=== PATIENT | female | born 1940 | race Caucasian/White ===

== ENCOUNTER 2019-11-26 11:38 | Outpatient (CLI) | payer MEDICARE, OTHER, SELFPAY ==
--- NOTE | ~2019-11-26 | MM_ITS ---
EXAMINATION: MM screening [facility] w [facility] HISTORY: Screening TECHNIQUE: Craniocaudal and mediolateral oblique 3-D tomosynthesis images were obtained and synthetic 2-D images were generated. CAD analysis was submitted and interpreted. COMPARISON: Comparison to multiple prior studies sequentially, with oldest reviewed study dated 04/2013. BREAST PARENCHYMAL COMPOSITION: There are scattered areas of fibroglandular density. FINDINGS: There is no evidence of suspicious mass, calcification, or architectural distortion to sugg est malignancy in either breast. There has been no suspicious interval change. IMPRESSION: 1. No mammographic evidence of malignancy. 2. Recommend routine screening mammography in one year. BI-RADS Category 1: Negative Reviewed, dictated and finalized at location A.
== END 2019-11-26 11:39 | disposition home or self-care (01) ==
LOC: ANHIMG 11:42
PROVIDERS: PCP Emergency Medicine; Visit Provider Emergency Medicine
DX: Z12.31 Encounter for screening mammogram for malignant neoplasm of breast (principal)
CPT/HCPCS: 77063; 77067

== ENCOUNTER 2020-06-20 10:10 | Emergency (ER) | payer MEDICARE, OTHER, SELFPAY ==
[2020-06-20 10:26] VITALS: BP 135/67; PULSE 58; RESP 16; TEMP 36.4; O2SAT 97
--- NOTE | 2020-06-20 10:44 | ED.EXTPRO ---
HPI - Extremity Problem General Chief complaint: Extremity Problem,Nontraumatic Stated complaint: L LEG PAIN Source: patient and RN notes reviewed Limitations: no limitations History of Present Illness HPI Narrative: The obese patient, on several meds inc ASA, presents with left distal calf pain. She complains now of shorter half week history of opposite, left lower extremity discomfort of the calf , well above the Achilles. No overuse, injury, visible swelling, shortness of breath, CP, rash; symptoms are mild and slightly worse with activity. 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 Discussed possible causes [vascular, orthopedic, etc.] patient declines same day referral to hospital for higher testing.. Related Data Home Medications Medication Instructions Recorded Confirmed alprazolam 0.5 mg tablet 0.5 mg PO .COMPLEX 04/25/19 06/20/20 aspirin 81 mg chewable tablet See Rx Instructions PO DAILY 05/20/19 06/20/20 Allergies Allergy/AdvReac Type Severity Reaction Status Date / Time No Known Allergies Allergy Verified 06/20/20 10:14 Review of Systems Review of Systems: Narrative: General/Constitutional: No weight loss,fever Eyes: N0: Redness,discharge Ears/Nose/Throat: No: Epistaxis,ear discharge Respiratory: Denies: Hemoptysis Gastrointestinal: No Vomiting, Bleeding-rectal Skin: No Lumps, eruption Neurologic: No Focal Weakness,Sz Hematologic: Denies: Petechiae/Purpura Psychiatric: No: Suicida ideationl All Other Systems: Reviewed and Negative PMFSH Past Medical History Medical History (Updated 06/20/20 @ 10:48 by Calvin Aceves MD) Diabetes Hypercholesterolemia Hypertension Family History Family History Father Cerebrovascular accident Family history of Alzheimer's disease Social History Social History Smoking status: Former smoker Alcohol intake: never Comments At time of signature, agree with nursing past medical, surgical, social and family history. There is no relevant family history pertinent to the presenting complaint Exam Narrative: Exam Narrative: General Appearance: Well appearing, Well nourished, No distress EYE: PERRLA, EOMI, Conjunctiva clear Mouth/Throat: Normal appearing, Normal lips: Supple Respiratory: Airway patent, No respiratory distress MS-calf: Normal strength (mostly intact, almost unlimited flexion/extension by pain), min distal tenderness ( , with mild decreased ROM), no swelling, Other (no anterior drawer, no collateral laxity, no Achilles tenderness, no Homans, no Cao). Skin: Warm, Dry, Normal color Neurological: A&O x3, Speech clear, CN II-XII intact Psychiatric: Normal mood, Normal affect Course Vital Signs Vital signs: Vital Signs Temperature 97.5 F L 06/20/20 10:26 Pulse Rate 58 L 06/20/20 10:26 Respiratory Rate 16 06/20/20 10:26 Blood Pressure 135/67 06/20/20 10:26 Pulse Oximetry 97 06/20/20 10:26 Temperature 97.5 F L 06/20/20 10:26 Pulse Rate 58 L 06/20/20 10:26 Respiratory Rate 16 06/20/20 10:26 Blood Pressure 135/67 06/20/20 10:26 Pulse Oximetry 97 06/20/20 10:26 Discharge Plan Discharge Clinical Impression: Pain of left calf Patient Disposition: Left Against Medical Advice Condition: Guarded Prognosis Additional Instructions: You have declined hospital referral today, but may going in anytime Ensure follow-up with your PMD Prescriptions: New prednisone 20 mg tablet 60 mg PO DAILY Qty: 9 RF: 0 acetaminophen-codeine 300-30 mg tablet 1 - 2 tablet PO HS PRN (Reason: pain) Qty: 10 RF: 0 No Action alprazolam [Xanax] 0.5 mg tablet 0.5 mg PO .COMPLEX RF: 0 aspirin 81 mg tablet,chewable See Rx Instructions PO DAILY RF: 0 losartan 100 mg tablet See Rx Inst
== END 2020-06-20 11:05 | disposition left against medical advice (07) ==
PROVIDERS: Emergency Provider Emergency Medicine; PCP Emergency Medicine
DX: M79.662 Pain in left lower leg (principal); E11.9 Type 2 diabetes mellitus without complications; E78.00 Pure hypercholesterolemia, unspecified; I10 Essential (primary) hypertension; Z87.891 Personal history of nicotine dependence; Z86.718 Personal history of other venous thrombosis and embolism; F41.9 Anxiety disorder, unspecified; Z98.42 Cataract extraction status, left eye; Z98.41 Cataract extraction status, right eye
CPT/HCPCS: 99213; G0463

== ENCOUNTER 2020-12-07 10:34 | Outpatient (CLI) | payer MEDICARE, OTHER, SELFPAY ==
--- NOTE | ~2020-12-07 | MM_ITS ---
EXAMINATION: MM screening [facility] w [place] HISTORY: Screening TECHNIQUE: Craniocaudal and mediolateral oblique 3-D tomosynthesis images were obtained and synthetic 2-D images were generated. CAD analysis was submitted and interpreted. COMPARISON: Comparison to multiple prior studies sequentially, with oldest reviewed study dated 09/11. BREAST PARENCHYMAL COMPOSITION: There are scattered areas of fibroglandular density. FINDINGS: There is no evidence of suspicious mass, calcification, or architectural distortion to sugg est malignancy in either breast. There has been no suspicious interval change. IMPRESSION: 1. No mammographic evidence of malignancy. 2. Recommend routine screening mammography in one year. BI-RADS Category 1: Negative Reviewed, dictated and finalized at location A.
== END 2020-12-07 10:35 | disposition home or self-care (01) ==
PROVIDERS: PCP Emergency Medicine; Visit Provider Emergency Medicine
DX: Z12.31 Encounter for screening mammogram for malignant neoplasm of breast (principal)
CPT/HCPCS: 77063; 77067

== ENCOUNTER 2021-04-04 13:45 | Outpatient (CLI) | payer MEDICARE, SELFPAY ==
--- NOTE | ~2021-04-04 | XR_ITS ---
EXAMINATION:XR_[id number]_CR DATE: 04/04/2021 14:08 INDICATION: Neck pain TECHNIQUE: AP, lateral, and odontoid views of the cervical spine are provided. COMPARISON: 09/25/2007 FINDINGS: There are 2 mm of unchanged anterolisthesis of C4 on C5. The odontoid is intact. No fractur e is identified. The vertebral body heights are maintained. There is severe loss of intervertebral di sc space height at C5-6 and C6-7 with interval worsening. Small degenerative osteophytes project from the anterior endplates of multiple vertebral bodies. There is severe multilevel facet and uncoverteb ral joint osteoarthritis. Prevertebral soft tissues are normal. IMPRESSION: 1. Severe cervical spondylosis with interval worsening but no acute findings. Reviewed, dictated and finalized at location F. 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
== END 2021-04-04 13:46 | disposition home or self-care (01) ==
LOC: ANHIMG 13:52
PROVIDERS: PCP Emergency Medicine; Visit Provider Emergency Medicine
DX: M47.892 Other spondylosis, cervical region (principal)
CPT/HCPCS: 72040

== ENCOUNTER 2022-01-19 10:34 | Outpatient (CLI) | payer MEDICARE, OTHER, SELFPAY ==
--- NOTE | ~2022-01-19 | MM_ITS ---
EXAMINATION: MM screening [facility] BI w [place] HISTORY: Screening mammogram TECHNIQUE: Craniocaudal and mediolateral oblique 3-D tomosynthesis images were obtained and synthetic 2-D images were generated. CAD analysis was submitted and interpreted. COMPARISON: 12/07/2020, 11/26/2019, 11/10/2018 BREAST PARENCHYMAL COMPOSITION: The breasts are almost entirely fatty. FINDINGS: An intramammary lymph node is noted in the upper outer quadrant of the right breast. No chely picious mass, calcification, or architectural distortion are identified in either breast to suggest m alignancy. There has been no suspicious interval change. IMPRESSION: 1. No mammographic evidence of malignancy. 2. Recommend routine screening mammography while the patient remains in good health. BI-RADS Category 2: Benign finding(s). Reviewed, dictated and finalized at location A. IMPRESSION: 1. No mammographic evidence of malignancy. 2. Recommend routine screening mammography while the patient remains in good he alth. BI-RADS Category 2: Benign finding(s).
== END 2022-01-19 10:35 | disposition home or self-care (01) ==
PROVIDERS: PCP Emergency Medicine; Referring Provider Obstetrics & Gynecology Gynecology; Visit Provider Emergency Medicine
DX: Z12.31 Encounter for screening mammogram for malignant neoplasm of breast (principal)
CPT/HCPCS: 77063; 77067

== ENCOUNTER 2022-04-30 12:05 | Outpatient (CLI) | payer MEDICARE, OTHER, SELFPAY ==
--- NOTE | ~2022-04-30 | MR_ITS ---
MRI of the left hand CLINICAL HISTORY: Pain, inflammatory arthropathy TECHNIQUE: Sagittal T1-weighted and STIR images, axial T1-weighted, T2 fat-sat, STIR, and T1 fat-sat images, and coronal T1-weighted and STIR images were performed. Following intravenous administration of 18 cc MultiHance gadolinium, T1-weighted fat-sat imaging was performed in the axial, coronal, and sagittal planes. FINDINGS: There is moderate degenerative change the first carpal metacarpal joint, with reactive subc hondral cystic change and marrow edema about the joint space. There is severe degenerative change at the third PIP joint, with joint space narrowing and reactive subchondral cystic change. Questionable central erosive arthropathy. There is moderate to advanced arthritic change at the fourth PIP joint, with joint space narrowing present. There are moderate degenerative changes of the third and fourth D IP joints. Flexor and extensor tendons are unremarkable. Visualized musculature of the hand is unremarkable. No soft tissue mass or fluid collection evident. No significant joint effusion identified. No abnormal/suspicious postcontrast enhancement identified. IMPRESSION: Advanced degenerative change at the third PIP joint, consistent with osteoarthritis versus possibly e rosive osteoarthritis. Additional osteoarthritic changes at the first CMC joint, fourth PIP joint, and third and fourth DIP joints. 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 Additional osteoarthritic changes at the first CMC joint, fourth PIP joint, and third and fourth DIP joints.
== END 2022-04-30 12:06 | disposition home or self-care (01) ==
PROVIDERS: PCP Emergency Medicine
DX: M19.042 Primary osteoarthritis, left hand (principal); M79.642 Pain in left hand
CPT/HCPCS: 73220; A9577

== ENCOUNTER → 2022-09-30 09:36 | Outpatient (CLI) | payer MEDICARE, OTHER, SELFPAY ==
--- NOTE | ~2022-09-30 | MR_ITS ---
EXAMINATION: MR wrist RT wo con DATE: 09/30/2022 10:48 INDICATION: Right wrist pain. Right finger numbness. TECHNIQUE: Magnetic resonance imaging (MRI) of the wrist was performed without intravenous contrast. Sequences performed include coronal T1-weighted FSE, coronal PD-weighted FS FSE, axial PD-weighted FS FSE, axial PD-weighted FSE, sagittal PD-weighted FSE, and sagittal PD-weighted FS FSE. COMPARISON: None FINDINGS: Intrinsic ligaments: Scapholunate ligament and lunotriquetral ligament are intact. Triangular fibrocartilage complex (TFCC): There is a full-thickness tear of triangular fibrocartilage. Extensor wrist: The extensor tendons are normal. Flexor wrist: The flexor tendons are normal. Median nerve is normal. Guyon's canal: Ulnar nerve is normal. Bones/other: Bone alignment is normal. There is severe osteoarthritis of triscaphe joint and moderate osteoarthrit is of first carpometacarpal joint. There is a skin marker superficial to radial styloid. IMPRESSION: 1. Severe osteoarthritis of triscaphe joint and moderate osteoarthritis of first carpometacarpal join t. Reviewed, dictated and finalized at location A. IMPRESSION: 1. Severe osteoarthritis of triscaphe joint and moderate osteoarthritis of firs t carpometacarpal joint.
--- NOTE | ~2022-09-30 | MR_ITS ---
EXAMINATION: MR cervical spine wo con DATE: 09/30/2022 10:54 INDICATION: Cervical radiculopathy. Chronic neck pain. TECHNIQUE: Magnetic resonance imaging (MRI) of the cervical spine was performed without intravenous c ontrast. Sequences included sagittal T2-weighted FSE, sagittal T2-weighted FS FSE, sagittal T1-weight ed FSE, axial MERGE, and axial T2-weighted FSE. COMPARISON: Cervical spine radiographs 04/04/21 FINDINGS: Bone alignment is normal. Vertebral body heights are normal. There is severely decreased di sc height at C5-C6 and C6-C7. The spinal cord signal intensity is normal. The following disc levels a re specifically discussed: C2-C3: The disc does not extend beyond the endplate margin. There is no uncovertebral joint osteoarth ritis. There is ankylosis of right facet joint with moderate hypertrophy. There is mild left facet chuck int osteoarthritis. There is no neural foraminal stenosis. There is no central canal stenosis. C3-C4: The disc does not extend beyond the endplate margin. There is mild bilateral uncovertebral mell nt osteoarthritis. There is severe bilateral facet joint osteoarthritis. There is mild bilateral neur al foraminal stenosis. There is no central canal stenosis. C4-C5: The disc does not extend beyond the endplate margin. There is mild bilateral uncovertebral mell nt osteoarthritis. There is severe right and moderate left facet joint osteoarthritis. There is mild right neural foraminal stenosis. There is no central canal stenosis. C5-C6: The disc is bulging. There is severe bilateral uncovertebral joint osteoarthritis. There is se katelin bilateral facet joint osteoarthritis. There is moderate bilateral neural foraminal stenosis. The re is mild central canal stenosis. C6-C7: The disc is bulging. There is severe bilateral uncovertebral joint osteoarthritis. There is se katelin bilateral facet joint osteoarthritis. There is mild right and moderate left neural foraminal kristin nosis. There is mild central canal stenosis. C7-T1: The disc does not extend beyond the endplate margin. There is no uncovertebral joint osteoarth ritis. There is severe bilateral facet joint osteoarthritis. There is mild bilateral neural foraminal stenosis. There is no central canal stenosis. IMPRESSION: 1. Severe cervical spondylosis. Reviewed, dictated and finalized at location A.
== END ==
PROVIDERS: PCP Emergency Medicine; Visit Provider Emergency Medicine
DX: M47.22 Other spondylosis with radiculopathy, cervical region (principal); M19.031 Primary osteoarthritis, right wrist
CPT/HCPCS: 72141; 73221

== ENCOUNTER 2022-10-08 04:32 | Emergency (ER) | payer MEDICARE, OTHER, SELFPAY ==
--- NOTE | ~2022-10-08 | XR_ITS ---
XR chest 2V DATE: 10/08/2022 05:04 INDICATION: Chest pain for one day TECHNIQUE: AP and lateral views COMPARISON: 03/27/2019 PA and lateral chest FINDINGS: Mild cardiomegaly. Aortic arch calcification, minimal aortic unfolding. No hilar or mediast inal enlargement. Minimal discoid atelectasis or scarring in the lung bases. The lungs otherwise appear clear. No pleur al effusion or pulmonary vascular congestion or pneumothorax is detected. Osteopenia. Degenerative spurring of the thoracic spine. IMPRESSION: Minimal discoid atelectasis or scarring at the lung bases Reviewed, dictated and finalized at location A.
--- NOTE | ~2022-10-08 | US_ITS ---
US abdomen limited DATE: 10/08/2022 08:54 INDICATION: Epigastric abdominal pain, elevated liver function tests. Chest pain. TECHNIQUE: Real-time imaging and Doppler analysis of the liver, pancreas, gallbladder COMPARISON: 11/26/2007 CT renal scan FINDINGS: No hepatic or pancreatic space-occupying mass lesion. Normal hepatopedal portal venous flow direction. No pancreatic duct dilatation. The common bile duct measures 7 mm, within upper normal ra nge for patient age. No gallstones or gallbladder wall thickening are detected. IMPRESSION: No significant abnormality is demonstrated Reviewed, dictated and finalized at Location A. Reviewed, dictated and finalized at location A.
[2022-10-08 04:33] VITALS: BP 152/90; PULSE 80; RESP 23; TEMP 36.9; O2SAT 98
--- NOTE | 2022-10-08 04:33 | ECG_ITS ---
Measurements Intervals Mack Rate: 56 P: 53 CT: 193 QRS: 11 QRSD: 94 T: 58 QT: 430 QTc: 419 Interpretive Statements SINUS BRADYCARDIA BORDERLINE ECG NO PREVIOUS ECG AVAILABLE FOR COMPARISON Electronically Signed On 10-08-2022 8:12:46 CDT by Zbigniew Dominguez D.O.
[2022-10-08 04:40] VITALS: PULSE 57
[2022-10-08 04:42] VITALS: O2SAT 100
--- NOTE | 2022-10-08 04:44 | PC.NURSE ---
Patient states once EMS arrived to ED her chest pain is 0/10
[2022-10-08 04:59] LABS: Basophils Percent Auto 0.4 % (0.2-1.2); Eosinophils Absolute Auto 0.3 K/mm3 (0-0.3); Eosinophils Percent Auto 3.3 % (0-4.4); Hematocrit 39.3 % (37.0-47.0); Hemoglobin 12.6 g/dL (12.0-15.0); Immature Granulocyte Absolute 0.03 K/mm3 (0.00-0.031); Immature Granulocyte Percent A 0.3 % (0-0.5); Lymphocytes Absolute Auto 2.15 K/mm3 (0.9-3.2); Lymphocytes Percent Auto 24.2 % (18.3-44.2); Mean Corpuscular HGB Conc 32.1 g/dl (32-36); Mean Corpuscular Hemoglobin 31.7 pg (26-34); Mean Platelet Volume 10.8 fl (7.4-10.4); Monocytes Absolute Auto 0.7 K/mm3 (0.1-0.6); Monocytes Percent Auto 7.5 % (2.6-8.5); Neutrophils Absolute Auto 5.7 K/mm3 (1.3-6.7); Neutrophils Percent Auto 64.3 % (45.5-73.1); Platelet Count Result 222 k/mm3 (150-375); Red Blood Count 3.97 M/mm3 (4.2-5.4); Red Cell Distribution Width 13.2 % (11.5-14.5); White Blood Count 8.9 K/mm3 (4.5-10.0)
[2022-10-08 05:08] LABS: Alanine Aminotransferase 40 U/L (6-35); Alkaline Phosphatase 93 U/L (38-126); Anion Gap 4 mmol/L (8-16); Aspartate Amino Transferase 77 U/L (14-36); Bilirubin,Total 0.5 mg/dL (0.2-1.3); Blood Urea Nitrogen 18 mg/dL (7-17); Calcium 8.7 mg/dL (8.4-10.2); Carbon Dioxide 27 mmol/L (22-30); Chloride 107 mmol/L (98-107); Estimated Glomerular Filt Rate > 60; Glucose 115 mg/dL (65-110); Lipase 108 U/L (23-300); Sodium 138 mmol/L (137-145)
[2022-10-08 05:10] LABS: Prothrombin Time 13.6 Seconds (11.1-14.7)
[2022-10-08 05:11] LABS: Partial Thromboplastin Time 31.7 SECONDS (22.3-36.8)
--- NOTE | 2022-10-08 05:12 | ED.GENADULT ---
HPI - General Adult General Chief complaint: Chest Pain <Kiet Cooper MD - Last Filed: 10/08/22 06:06> Stated complaint: chest pain <Kiet Cooper MD - Last Filed: 10/08/22 06:06> Time Seen by Provider: 10/08/22 04:36 <Kiet Cooper MD - Last Filed: 10/08/22 06:06> History of Present Illness HPI narrative: Patient 81-year-old female who presents emerged department with chief complaint of chest pain. Patient reports that she was having a difficult time sleeping this evening and then had an episode where she felt some uncomfortable feeling in her low chest and under the left breast area. Patient reports she took 4 baby aspirin and was given a single nitroglycerin by EMS prior to arrival patient states that her pain is resolved at this point patient reports no prior history of cardiac disease but does report that she has a history of hypertension and high cholesterol. Patient reports that she is currently a non-smoker the patient reports that she has very minimal other medical conditions and reports that she has never had any stents placed and reports no prior cardiac disease. <Kiet Cooper MD - Last Filed: 10/08/22 06:06> Related Data Home medications: Home Medications Medication Instructions Recorded Confirmed aspirin 81 mg chewable tablet See Rx Instructions PO DAILY 05/20/19 12/10/20 methotrexate sodium 2.5 mg tablet 2.5 mg PO WEEKLY 12/13/21 <Kiet Cooper MD - Last Filed: 10/08/22 06:06> Allergies/adverse reactions: Allergies Allergy/AdvReac Type Severity Reaction Status Date / Time No Known Allergies Allergy Verified 09/19/22 10:55 <Kiet Cooper MD - Last Filed: 10/08/22 06:06> Review of Systems Review of Systems: A 10 system review of systems was completed on the patient and is negative except for what is stated in the HPI. Nursing and ancillary documentation was reviewed. <Kiet Cooper MD - Last Filed: 10/08/22 06:06> [facility] Past Medical History Medical History: Medical History Acute anemia Acute non-recurrent frontal sinusitis Acute non-recurrent maxillary sinusitis Acute recurrent maxillary sinusitis Adverse effect of ptnwkbenpfs-krdzbqinrn-pasryv inhibitors, initial encounter Anxiety disorder, unspecified Bilateral carotid bruits Body mass index [BMI] 29.0-29.9, adult (12/18/16) Body mass index [BMI] 30.0-30.9, adult (08/22/16) Body mass index [BMI] 31.0-31.9, adult (04/25/16) Bronchitis Chronic sinusitis Cough due to angiotensin-converting enzyme inhibitor Diabetes Fatigue Hair loss Head congestion Heart palpitations Hypercholesterolemia Hypertension Influenza A Neck pain Post-menopausal URI with cough and congestion Vitamin D deficiency <Kiet Cooper MD - Last Filed: 10/08/22 06:06> Family History Family History: Family History Father Cerebrovascular accident Family history of Alzheimer's disease <Kiet Cooper MD - Last Filed: 10/08/22 06:06> Social History Social History: Social History Smoking status: Former smoker Alcohol intake: never Lack of Transportation: No Lack of Food: Never True Current Housing: I Have Housing Concerned About Future Housing: No Difficulty Paying Gas/Electric Bills: No Difficulty Paying for Meds: No Currently Unemployed: No Education: Associate Degree Difficulty w/ Childcare or Family Care: No <Kiet Cooper MD - Last Filed: 10/08/22 06:06> Exam Narrative: GENERAL: Well-appearing, well-nourished, and in no acute distress. HEAD: Normocephalic, atraumatic. EYES: PERRLA and EOMI. ENT: Nares clear, no rhinorrhea or epistaxis. Mucous membranes moist. NECK: Supple.
[2022-10-08 05:20] LABS: Troponin I < 0.012 ng/mL (0.000-0.034)
[2022-10-08 06:37] VITALS: BP 133/59; PULSE 60; RESP 14; O2SAT 100
[2022-10-08 07:41] VITALS: BP 131/65; PULSE 58; RESP 13; O2SAT 97
[2022-10-08 07:51] LABS: Troponin I < 0.012 ng/mL (0.000-0.034)
[2022-10-08 10:00] VITALS: BP 145/70; PULSE 68; RESP 16; O2SAT 98
== END 2022-10-08 10:00 | disposition home or self-care (01) ==
PROVIDERS: Emergency Medicine; Emergency Provider Emergency Medicine; PCP Emergency Medicine
DX: R07.9 Chest pain, unspecified (principal); I10 Essential (primary) hypertension; E78.00 Pure hypercholesterolemia, unspecified; E11.9 Type 2 diabetes mellitus without complications; E55.9 Vitamin D deficiency, unspecified; Z87.891 Personal history of nicotine dependence; Z79.82 Long term (current) use of aspirin; Z79.84 Long term (current) use of oral hypoglycemic drugs; R00.1 Bradycardia, unspecified
CPT/HCPCS: 36415; 71046; 76705; 80053; 83690; 84484; 85025; 85610; 85730; 93005; 99284

== ENCOUNTER 2022-11-21 06:41 | Day surgery (SDC) | payer MEDICARE, OTHER, SELFPAY ==
[2022-11-13 09:22] VITALS: BMI 30.6
--- NOTE | ~2022-11-21 | XR_ITS ---
EXAMINATION: XR fluoroscopy no charge DATE: 11/21/2022 8:19 CDT INDICATION: RIGHTWARD C6-7 INTERLAMINAR EPIDURAL STEROID INJECTION . TECHNIQUE: 2 fluoroscopic images of the lower C-spine were obtained during right C6-7 interlaminar ep idural steroid injection performed by the surgeon. I was not present in the operating room. Fluorosco py exposure time was 18.3 seconds. Air Kerma 8.75 mGy. COMPARISON: None FINDINGS: Needle access between C6 and C7. Contrast instillation into the epidural space. IMPRESSION: Fluoroscopic documentation of right C6-7 interlaminar epidural steroid injection. Please refer to the operative note for complete procedural details . Reviewed, dictated and finalized at location K. IMPRESSION: Fluoroscopic documentation of right C6-7 interlaminar epidural steroid injectio n. Please refer to the operative note for complete procedural details .
[2022-11-21 06:57] VITALS: BP 149/68; PULSE 63; RESP 20; TEMP 36.5; O2SAT 99
--- NOTE | 2022-11-21 07:31 | WPDHPUPDATE1 ---
History and Physical Update Update Date/Time: 11/21/22 07:31 History and Physical has been reviewed, including an updated exam of the patient. There are NO changes in the patient's condition. Risks, benefits, and alternatives have been discussed and questions answered. Patient agrees to proceed with procedure.
[2022-11-21 08:25] VITALS: BP 157/72; PULSE 57; O2SAT 97
[2022-11-21] MEDS: LIDOCAINE HCL 1% LOCAL INJ 20 ML VIAL 3 ML INFILTRATE (08:32)
[2022-11-21 08:35] VITALS: BP 152/75; PULSE 58; O2SAT 96
[2022-11-21 08:41] VITALS: BP 153/72; PULSE 64; RESP 14; O2SAT 99
--- NOTE | 2022-11-21 08:46 | W.PM.PROC2 ---
Procedure Note - Detailed Date of Procedure 11/21/22 Pre-op Diagnosis Cervical radiculopathy, Cervical Stenosis Post-op Diagnosis Same Procedure Performed Rightward C7-T1 Interlaminar Epidural Steroid Injection with Fluoroscopy and Contrast Control Surgeon Kamar Adams MD Anesthesia Local Indications Chronic Pain from cervical radiculopathy recalcitrant to conservative measures. Description of Procedure INFORMED CONSENT: Risks, benefits and alternatives to the procedure were discussed in detail with the patient who expressed explicit understanding and consent to proceed. Patient was informed verbally and in written form regarding the risks associated with the procedure including the low risk of serious infection, bleeding/bruising, allergic reaction, nerve or organ injury, paralysis, procedural site pain or discomfort, worsening pain and/or mobility, failure to treat and/or disfigurement. The patient expressed explicit understanding and consent to proceed. All materials required for the procedure were available prior to procedure start. Site and side was marked prior to procedure and confirmed in the presence of the patient. PROCEDURE IN DETAIL: The patient was brought to the procedural suite and placed in the prone position. Patient's head was positioned and stabilized with a ProneView pillow or equivalent. Patient was made comfortable with use of pillows under the chest, hips and ankles. Skin overlying the injection site was prepared broadly with ChloraPrep applicator and draped in a sterile manner. Aseptic technique was employed throughout. The endplates of the vertebral body at the site of interest were aligned in the AP view. Slight caudad tilt and ipsilateral oblique angulation was utilized to optimize visualization of the targeted posterior intervertebral foramen at C7-T1. Local anesthesia was established by infiltration with approximately 5 mL of 2% lidocaine via a 1-1/2 inch 27-gauge needle. A 20-gauge 4-inch Tuohy epidural needle was advanced intermittently until appropriate loss of resistance to air was identified via plastic loss of resistance syringe. Lateral view was used to confirm the appropriate positioning of the needle tip within the posterior epidural space. In the AP view, 2.0 mL of Omnipaque 300 contrast medium was injected after negative aspiration for CSF, blood or other bodily fluid, showing appropriate epidural spread of contrast without evidence of intravascular or intrathecal placement. After negative repeat aspiration for CSF, blood or other bodily fluid, A 4 mL solution containing 10 mg of dexamethasone in sterile PF Normal Saline was injected after negative repeat aspiration. Appropriate spread of the injectate was confirmed with washout of previously injected contrast. No parasthesias were elicited. Needle was removed completely intact without difficulty. Images were saved and documented in the patient chart. Patient's skin was cleansed and sterile bandage applied. The patient tolerated the procedure well. The patient was transported to the recovery area in stable condition where they were observed for an appropriate amount of time prior to discharge, without evidence of complication. The patient was instructed to avoid excessive activity for the next 48 hours, including overhead work, reaching or extended device/computer usage. Showers only for 48 hours. They were instructed not to drive or operate heavy machinery for 24 hours. They are to monitor for severe headaches, fevers, chills, night sweats, erythema/swelling at the site or any other signs of infection, bleeding/bruising, bowel or bladder changes as well as new pain, weakness or numbness in the upper or lower extremity. Should they notice these changes, they are instructed to call our office immediately or report directly to the nearest Emergency Department if no answer or if after posted office hours. EXPOSURE:Time: 18.3s Total Dose: 8.75 mGy CONTRAST WASTED: 28mL Omnipaqu
== END 2022-11-21 08:58 | disposition home or self-care (01) ==
PROVIDERS: PCP Emergency Medicine; Visit Provider Anesthesiology Pain Medicine
PROC: (CPT 62321; principal; 2022-11-21 08:00)
DX: M54.12 Radiculopathy, cervical region (principal); M48.02 Spinal stenosis, cervical region
CPT/HCPCS: 62321; 99199

== ENCOUNTER 2022-11-22 12:32 | Outpatient (CLI) | payer MEDICARE, OTHER, SELFPAY ==
--- NOTE | 2022-11-22 14:00 | NEURO_ITS ---
Impression: # Diabetic on Metformin complains of numbness of right hand. # Right sided sensory Carpal Tunnel Syndrome with more involvement of middle finger. # Needle/EMG exam mildly neurogenic in APB. # Clinical correlation recommended. Nerve Conduction Studies Anti Sensory Summary Table Stim Site NR Peak (ms) P-T Amp (?V) Site1 Site2 Delta-P (ms) Dist (cm) Pierce (m/s) Right Median Anti Sensory (2-3nd Digit) Wrist 3.2 39.1 Wrist 2-3nd Digit 3.2 14.0 44 Wrist 4.9 52.3 Wrist 2-3nd Digit 3.2 14.0 44 Right Radial Anti Sensory (Base 1st Digit) Wrist 2.4 24.0 Wrist Base 1st Digit 2.4 0.0 Right Ulnar Anti Sensory (5th Digit) Wrist 2.6 25.3 Wrist 5th Digit 2.6 14.0 54 Motor Summary Table Stim Site NR Onset (ms) O-P Amp (mV) Site1 Site2 Delta-0 (ms) Dist (cm) Pierce (m/s) Right Median Motor (Abd Poll Brev) Wrist 2.9 4.8 Elbow Wrist 4.8 29.0 60 Elbow 7.7 4.5 Right Ulnar Motor (Abd Dig Minimi) Wrist 2.7 8.3 A Elbow Wrist 5.2 31.0 60 A Elbow 7.9 7.1 F Wave Studies NR F-Lat (ms) L-R F-Lat (ms) Right Median (Mrkrs) (Abd Poll Brev) 29.26 Right Ulnar (Mrkrs) (Abd Dig Min) 28.75 EMG Side Muscle Nerve Root Ins Act Fibs Amp Dur Recrt Comment Right 1stDorInt Ulnar C8-T1 Nml Nml Nml Nml Nml Right Ext Indicis Radial (Post Int) C7-8 Nml Nml Nml Nml Nml Right Ext Digitorum Radial (Post Int) C7-8 Nml Nml Nml Nml Nml Right BrachioRad Radial C5-6 Nml Nml Nml Nml Nml Right PronatorTeres Median C6-7 Nml Nml Nml Nml Nml Right Abd Poll Brev Median C8-T1 Nml Nml Nml >l2ms Reduced Right ABD Dig Min Ulnar C8-T1 Nml Nml Nml Nml Nml MTDD
== END 2022-11-22 12:33 | disposition home or self-care (01) ==
LOC: ANHNEURO 12:33
PROVIDERS: PCP Emergency Medicine; Visit Provider Orthopaedic Surgery
DX: G56.01 Carpal tunnel syndrome, right upper limb (principal)
CPT/HCPCS: 95886; 95909

== ENCOUNTER 2023-01-25 12:46 | Outpatient (CLI) | payer MEDICARE, OTHER, SELFPAY ==
--- NOTE | 2023-01-25 13:10 | ECG_ITS ---
Measurements Intervals [place] Rate: 65 P: 52 ID: 170 QRS: 10 QRSD: 87 T: 63 QT: 387 QTc: 404 Interpretive Statements SINUS RHYTHM BORDERLINE ST-T WAVE ABNORMALITY- HIGH LATERAL LEADS BASELINE ARTIFACT- I, II BORDERLINE ECG COMPARED TO ECG 10/08/2022 04:40:43 [address]M NOW PRESENT ST-T WAVE ABNORMALITY NOW PRESENT Electronically Signed On 01-25-2023 14:24:19 CDT by Zbigniew Dominguez D.O.
== END 2023-01-25 12:47 | disposition home or self-care (01) ==
PROVIDERS: PCP Emergency Medicine
DX: Z20.822 Contact with and (suspected) exposure to COVID-19 (principal); R94.31 Abnormal electrocardiogram [ECG] [EKG]
CPT/HCPCS: 93005

== ENCOUNTER 2023-01-31 21:55 | Emergency (ER) | payer MEDICARE, OTHER, SELFPAY ==
--- NOTE | ~2023-01-31 | XR_ITS ---
EXAMINATION: XR chest 2V DATE: 01/31/2023 22:36 INDICATION: Chest pain. TECHNIQUE: Frontal and lateral views of the chest were obtained. COMPARISON: Chest 2 views 10/08/2022 FINDINGS: There is mild atelectasis in the lower lung zones. No pleural effusion or pneumothorax. The heart size is normal. IMPRESSION: 1. Mild atelectasis in the lower lung zones. Reviewed, dictated and finalized at location E. CILING MACHINE TENDER
--- NOTE | 2023-01-31 21:56 | ECG_ITS ---
Measurements Intervals [place] Rate: 59 P: 64 AK: 180 QRS: 22 QRSD: 89 T: 65 QT: 410 QTc: 408 Interpretive Statements SINUS BRADYCARDIA BASELINE ARTIFACT- V5 BORDERLINE ECG COMPARED TO ECG 01/25/2023 13:16:43 SINUS BRADYCARDIA NOW PRESENT Electronically Signed On 02-01-2023 7:09:59 MEDICAL FIELD REPRESENTATIVE by Zbigniew Dominguez D.O.
[2023-01-31 22:02] VITALS: BP 155/66; PULSE 63; RESP 20; TEMP 36.1; O2SAT 96
[2023-01-31 22:29] LABS: Basophils Percent Auto 0.5 % (0.2-1.2); Eosinophils Absolute Auto 0.2 K/mm3 (0-0.3); Eosinophils Percent Auto 2.8 % (0-4.4); Hemoglobin 13.7 g/dL (12.0-15.0); Immature Granulocyte Absolute 0.03 K/mm3 (0.00-0.031); Immature Granulocyte Percent A 0.4 % (0-0.5); Lymphocytes Absolute Auto 2.75 K/mm3 (0.9-3.2); Lymphocytes Percent Auto 36.1 % (18.3-44.2); Mean Corpuscular HGB Conc 31.9 g/dl (32-36); Mean Corpuscular Hemoglobin 31.6 pg (26-34); Mean Corpuscular Volume 99.3 fl (80-100); Mean Platelet Volume 10.6 fl (7.4-10.4); Monocytes Absolute Auto 0.6 K/mm3 (0.1-0.6); Monocytes Percent Auto 7.8 % (2.6-8.5); Neutrophils Percent Auto 52.4 % (45.5-73.1); Platelet Count Result 265 k/mm3 (150-375); Red Blood Count 4.33 M/mm3 (4.2-5.4); Red Cell Distribution Width 13.6 % (11.5-14.5); White Blood Count 7.6 K/mm3 (4.5-10.0)
[2023-01-31 22:51] LABS: INR 0.9; Partial Thromboplastin Time 29.9 SECONDS (22.3-36.8); Prothrombin Time 12.7 Seconds (11.1-14.7)
[2023-01-31 22:53] LABS: Alanine Aminotransferase 16 U/L (6-35); Albumin Level 4.4 g/dL (3.5-5.1); Alkaline Phosphatase 90 U/L (38-126); Anion Gap 4 mmol/L (8-16); Aspartate Amino Transferase 22 U/L (14-36); Bilirubin,Total 0.5 mg/dL (0.2-1.3); Blood Urea Nitrogen 14 mg/dL (7-17); Calcium 9.2 mg/dL (8.4-10.2); Carbon Dioxide 30 mmol/L (22-30); Chloride 104 mmol/L (98-107); Estimated CRCL calculation 67 ml/min; Estimated Glomerular Filt Rate > 60; Glucose 103 mg/dL (65-110); Lipase 107 U/L (23-300); Potassium 3.8 mmol/L (3.4-5.0); Sodium 138 mmol/L (137-145)
[2023-01-31 22:59] LABS: Troponin I < 0.012 ng/mL (0.000-0.034)
--- NOTE | 2023-01-31 23:38 | ED.GENADULT ---
HPI - General Adult General Chief complaint: Recheck/Abnormal Lab/Rx Stated complaint: chest pain/jaw pain Time Seen by Provider: 01/31/23 23:22 Source: patient Mode of arrival: ambulatory Limitations: no limitations History of Present Illness HPI narrative: This is a an 82-year-old female with PMH of HTN, HLD who presents to the ED with chief complaint of bilateral anterior neck pain and concern for elevated blood pressure. Reports that she started having some bilateral neck/jaw pain this afternoon. States that after dinner tonight she started feeling little/so she took her temperature which was normal. She also took her blood pressure and was concerned because it was elevated in the 150s. She had carpal tunnel surgery yesterday of her right hand and has been taking her pain medications with good relief. Denies fevers, chills, cough, chest pain, shortness of breath, LOC, vomiting, exertional component of pain. She does note that the neck has some tenderness bilaterally under the jaw areas. Related Data Home Medications Medication Instructions Recorded Confirmed aspirin 81 mg chewable tablet See Rx Instructions PO DAILY 05/20/19 01/24/23 Allergies Allergy/AdvReac Type Severity Reaction Status Date / Time No Known Allergies Allergy Verified 01/31/23 23:56 Review of Systems Review of Systems: All systems as dictated in [facility] Past Medical History Medical History Acute anemia Acute non-recurrent frontal sinusitis Acute non-recurrent maxillary sinusitis Acute recurrent maxillary sinusitis Adverse effect of iebafpoqxqx-acrvpukozd-ecfjrp inhibitors, initial encounter Anxiety disorder, unspecified Bilateral carotid bruits Body mass index [BMI] 29.0-29.9, adult (12/18/16) Body mass index [BMI] 30.0-30.9, adult (08/22/16) Body mass index [BMI] 31.0-31.9, adult (04/25/16) Bronchitis Chronic sinusitis Cough due to angiotensin-converting enzyme inhibitor Diabetes Fatigue Hair loss Head congestion Heart palpitations Hypercholesterolemia Hypertension Influenza A Neck pain Post-menopausal URI with cough and congestion Vitamin D deficiency Family History Family History Father Cerebrovascular accident Family history of Alzheimer's disease Social History Social History Smoking status: Never smoker Second hand tobacco smoke exposure: No Alcohol intake: never Substance use: never Substance use type: does not use Current Housing: Decline to Answer Concerned About Future Housing: Decline to Answer Difficulty Paying Gas/Electric Bills: Decline to Answer Difficulty Paying for Meds: Decline to Answer Currently Unemployed: Decline to Answer Education: Decline to Answer Difficulty w/ Childcare or Family Care: Decline to Answer Living arrangements: alone Spiritual care concerns: No Exam Narrative: GENERAL: Well-appearing, well-nourished, and in no acute distress. HEAD: Normocephalic, atraumatic. EYES: PERRLA and EOMI. ENT: Nares clear, no rhinorrhea or epistaxis. Mucous membranes moist. Oropharynx without tonsillar hypertrophy exudate or other lesions. NECK: Supple. Mild submandibular tenderness bilaterally. Tenderness near the parotid glands bilaterally as well. CHEST: No respiratory distress. Clear to auscultation. No wheezes rales or rhonchi HEART: Regular rate and rhythm. No murmur heard. Normal peripheral pulses. ABDOMEN: Soft, nontender, nondistended, normal active bowel sounds. MSK: Normal range of motion. No edema. SKIN: Warm, dry, no rash. NEURO: Alert and oriented x3. No focal deficits. PSYCH: Normal mood and affect. Course Course Emergency Course: Reevaluation 0010: Patient is still chest pain-free. She would like to go home and follow-up with her primary care doctor. Vital Signs V
[2023-01-31 23:48] VITALS: BP 150/70; PULSE 61; RESP 12; O2SAT 95
[2023-01-31] MEDS: ASPIRIN 81 MG CHEWABLE TABLET 324 MG PO (23:57)
== END 2023-02-01 00:14 | disposition home or self-care (01) ==
PROVIDERS: Emergency Medicine; Emergency Provider Physician Assistant; PCP Emergency Medicine
DX: R59.1 Generalized enlarged lymph nodes (principal); I10 Essential (primary) hypertension; J32.9 Chronic sinusitis, unspecified; E11.9 Type 2 diabetes mellitus without complications; E78.00 Pure hypercholesterolemia, unspecified; E55.9 Vitamin D deficiency, unspecified; Z86.2 Personal history of diseases of the blood and blood-forming organs and certain disorders involving the immune mechanism; R00.1 Bradycardia, unspecified; Z79.82 Long term (current) use of aspirin; Z79.84 Long term (current) use of oral hypoglycemic drugs
CPT/HCPCS: 36415; 71046; 80053; 83690; 84484; 85025; 85610; 85730; 93005; 99284; A9270

== ENCOUNTER → 2023-04-04 13:54 | Outpatient (CLI) | payer MEDICARE, OTHER, SELFPAY ==
--- NOTE | ~2023-04-04 | XR_ITS ---
EXAM: XR hip BI 2V w AP pelvis DATE: 04/04/2023 14:31 HISTORY: chronic Lt hip pain . COMPARISON: None available. FINDINGS: Decreased mineralization. No fracture or dislocation. No lytic or blastic lesion. Lumbar d egenerative disc disease. Moderate bilateral hip and pubic symphysis degenerative change. No erosion or periosteal change. Soft tissues within normal limits. IMPRESSION: Moderate bilateral hip osteoarthritic arthritis. Reviewed, dictated and finalized at location K. SCHOOL CUSTODIAN
--- NOTE | ~2023-04-04 | XR_ITS ---
XR shoulder LT min 2V DATE: 04/04/2023 14:32 INDICATION: Chronic left shoulder pain TECHNIQUE: 4 views COMPARISON: None FINDINGS: There is diffuse osteopenia. There is diminished joint space and mild spurring of the acromioclavicular joint. No fracture or dislocation, periosteal reaction or bone destruction or abnormal soft tissue calcifica tion. IMPRESSION: Osteopenia Mild degenerative change at acromioclavicular joint Diffuse idiopathic skeletal hyperostosis of the thoracic spine Cervical spondylosis Reviewed, dictated and finalized at location B. MASTER
== END ==
PROVIDERS: PCP Anesthesiology Pain Medicine; Visit Provider Anesthesiology Pain Medicine
DX: M46.1 Sacroiliitis, not elsewhere classified (principal); M54.9 Dorsalgia, unspecified; M19.011 Primary osteoarthritis, right shoulder; M19.012 Primary osteoarthritis, left shoulder; M25.512 Pain in left shoulder; M25.552 Pain in left hip; M16.0 Bilateral primary osteoarthritis of hip; M47.892 Other spondylosis, cervical region; M48.02 Spinal stenosis, cervical region; M48.12 Ankylosing hyperostosis [Forestier], cervical region
CPT/HCPCS: 73030; 73521

== ENCOUNTER 2023-04-24 09:39 | Day surgery (SDC) | payer MEDICARE, OTHER, SELFPAY ==
--- NOTE | ~2023-04-24 | XR_ITS ---
EXAMINATION: XR fluoroscopy no charge DATE: 04/24/2023 11:20 REDUCING SALON ATTENDANT INDICATION: LEFT SI JT INJ . TECHNIQUE: 5 fluoroscopic images and 2 cine clips of the left SI joint were obtained during left SI j oint injection performed by the surgeon. I was not present during the procedure. Fluoroscopy exposure time was 11.6 seconds. Air Kerma 7.83 mGy. COMPARISON: None FINDINGS: Injection needle approaching the left SI joint, followed by contrast injection. IMPRESSION: Fluoroscopic documentation of left SI joint injection. Please refer to the operative note for complet e procedural details . Reviewed, dictated and finalized at location K. CING SALON ATTENDANT IMPRESSION: Fluoroscopic documentation of left SI joint injection. Please refer to the oper ative note for complete procedural details .
--- NOTE | 2023-04-24 10:58 | WPDHPUPDATE1 ---
History and Physical Update Update Date/Time: 04/24/23 10:58 History and Physical has been reviewed, including an updated exam of the patient. There are NO changes in the patient's condition. Risks, benefits, and alternatives have been discussed and questions answered. Patient agrees to proceed with procedure.
--- NOTE | 2023-04-24 10:59 | W.PM.PROC2 ---
Procedure Note - Detailed Date of Procedure 04/24/23 Pre-op Diagnosis Sacroiliitis, chronic low back pain Post-op Diagnosis Same Procedure Performed Left intra-articular sacroiliac joint steroid injection under fluoroscopic guidance with contrast control. Surgeon Kamar Adams MD Anesthesia Local Description of Procedure INFORMED CONSENT: Risks, benefits and alternatives to the procedure were discussed in detail with the patient who expressed explicit understanding and consent to proceed. Patient was informed verbally and in written form regarding the risks associated with the procedure including the low risk of serious infection, bleeding/bruising, allergic reaction, nerve or organ injury, paralysis, procedural site pain or discomfort, worsening pain and/or mobility, failure to treat and/or disfigurement. The patient expressed explicit understanding and consent to proceed. All materials required for the procedure were available prior to procedure start. Site and side were marked prior to procedure and confirmed in the presence of the patient. PROCEDURE IN DETAIL: The patient was brought to the procedural suite and placed in the prone position. Patient was made comfortable with use of pillows under the head/chest, hips and ankles. Skin overlying the injection site on the affected side(s) was prepared broadly with ChloraPrep applicator and draped in a sterile manner. Aseptic technique was used throughout. The left SI joint was identified in the AP view and contralateral oblique angulation with caudal tilt was utilized to optimize visualization of the inferior and medial joint line representing the posterior portion of the joint. Local anesthesia was established by infiltration with approximately 5 mL of 2% lidocaine via a 1-1/2 inch 27-gauge needle. A 22-gauge 3.5 inch Quincke spinal needle was advanced until the needle entered the inferior third of the joint space approximately 1cm cephalad from its most inferior point. In the AP view, 0.5 mL of Omnipaque 300 contrast medium was injected after negative aspiration for CSF, blood or other bodily fluid, showing appropriate intra-articular spread of contrast without evidence of intravascular, perineural or intrathecal placement. A 2.0 mL solution containing 6.0 mg of betamethasone in 0.5% PF bupivacaine was injected after repeat negative aspiration. Appropriate spread of the injectate was confirmed with washout of previous injected contrast. No parasthesias were elicited. Needle was removed completely intact without difficulty. Images were saved and documented in the patient chart. Patient's skin was cleansed and sterile bandage applied. The patient tolerated the procedure well. The patient was transported to the recovery area in stable condition where they were observed for an appropriate amount of time prior to discharge, without evidence of complication. The patient was instructed to avoid excessive activity for the next 48 hours, including climbing and frequent use of stairs. Showers only for 48 hours. They were instructed not to drive or operate heavy machinery for 24 hours. They are to monitor for severe headaches, fevers, chills, night sweats, erythema/swelling at the site or any other signs of infection, bleeding/bruising, bowel or bladder changes as well as new pain, weakness or numbness in the upper or lower extremity. Should they notice these changes, they are instructed to call our office immediately or report directly to the nearest Emergency Department if no answer or if after posted office hours. COMPLICATIONS: None COMMENTS: None CONTRAST WASTED: 29.5 mL Omnipaque 300. Complications None Condition Stable Disposition Same day [facility] Billing Surgery - Charge Forward: Surgery Billing
[2023-04-24 11:24] VITALS: BP 142/77; PULSE 65; RESP 20; TEMP 36.9; O2SAT 100
[2023-04-24 11:27] VITALS: BP 164/73; PULSE 63; RESP 13; O2SAT 95
[2023-04-24] MEDS: BETAMETHASONE SODIUM PHOSPHATE PF INJ 6 MG/ML VIAL INFILTRATE (11:30)
[2023-04-24 11:31] VITALS: BP 165/73; PULSE 61; RESP 15; O2SAT 94
[2023-04-24] MEDS: LIDOCAINE HCL 1% PF INJ 5 ML VIAL XX (11:36)
[2023-04-24] MEDS: BUPivacaine HCL 0.5% 10 ML AMP INFILTRATE (11:36)
[2023-04-24 11:37] VITALS: BP 130/64; PULSE 64; RESP 18; O2SAT 97
== END 2023-04-24 11:50 | disposition home or self-care (01) ==
PROVIDERS: PCP Emergency Medicine; Visit Provider Anesthesiology Pain Medicine
PROC: (CPT G0260; principal; 2023-04-24 12:30)
DX: M46.1 Sacroiliitis, not elsewhere classified (principal); M54.59 Other low back pain
CPT/HCPCS: G0260; 27096; 99199

== ENCOUNTER 2023-05-04 09:25 | Outpatient (CLI) | payer MEDICARE, OTHER, SELFPAY ==
--- NOTE | ~2023-05-04 | MM_ITS ---
EXAMINATION: MM screening vivian BI w rolando HISTORY: Screening mammogram TECHNIQUE: Craniocaudal and mediolateral oblique 3-D tomosynthesis images were obtained and synthetic 2-D images were generated. CAD analysis was submitted and interpreted. COMPARISON: 01/19/2022, 12/07/2020, 11/26/2019 bilateral screening mammogram examinations BREAST PARENCHYMAL COMPOSITION: There are scattered areas of fibroglandular density. FINDINGS: There is no evidence of suspicious mass, calcification, or architectural distortion to sugg est malignancy in either breast. There has been no suspicious interval change. IMPRESSION: 1. No mammographic evidence of malignancy. 2. Recommend routine screening mammography in one year. BI-RADS Category 1: Negative Reviewed, dictated and finalized at location A. ING SUPERVISOR
== END 2023-05-04 09:26 | disposition home or self-care (01) ==
LOC: ANHIMG 09:28
PROVIDERS: PCP Emergency Medicine; Visit Provider Emergency Medicine
DX: Z12.31 Encounter for screening mammogram for malignant neoplasm of breast (principal)
CPT/HCPCS: 77063; 77067

== ENCOUNTER 2023-05-18 14:16 | Emergency (ER) | payer MEDICARE, OTHER, SELFPAY ==
[2023-05-18 14:16] VITALS: BP 144/77; PULSE 86; RESP 14; TEMP 36.3; O2SAT 96
--- NOTE | 2023-05-18 21:37 | PC.NURSE ---
No answer when called for repeat VS.
--- NOTE | 2023-05-18 22:16 | PC.NURSE ---
No answer when called for room. Assume pt left.
== END 2023-05-18 22:26 | disposition left against medical advice (07) ==
PROVIDERS: PCP Emergency Medicine
DX: K59.00 Constipation, unspecified (principal)
CPT/HCPCS: 99199

== ENCOUNTER 2023-06-07 09:01 | Outpatient (CLI) | payer MEDICARE, OTHER, SELFPAY ==
--- NOTE | ~2023-06-07 | DEXA_ITS ---
Bone Density Report Name: CHARLES TRINH Age: 82 Sex: Female Ethnicity: White Date of : 1940 Indication: osteopenia; height loss; history of glucocorticoids; cancer; hysterectomy; Referring Provider: ITZEL RAPP Study: Bone densitometry was performed. Exam Date: June 07, 2023 Accession number: [id number] Bone Density: Region BMD T-score Z-score Classification AP Spine(L1-L4) 0.900 -1.3 1.5 Osteopenia Femoral Neck (Left) 0.610 -2.2 0.3 Osteopenia Total Hip (Left) 0.847 -0.8 1.5 Normal Femoral Neck (Right) 0.571 -2.5 0.0 Osteoporosis Total Hip (Right) 0.752 -1.6 0.7 Osteopenia Total Hip Mean 0.799 -1.2 1.1 Osteopenia World Health Organization criteria for BMD impression classify patients as: Normal (T-score at or above -1.0), Osteopenia (T-score between -1.0 and -2.5), or Osteoporosis (T-score at or below -2.5). 10-year Fracture Risk: FRAX not reported because: Some T-score for Spine Total or Hip Total or Femoral Neck at or below -2.5 Previous Exams: Region Exam Age BMD T-score BMD Change BMD Change Date g/cm2 vs Baseline vs Previous AP Spine (L1-L4) 06/07/2023 82 0.900 -1.3 0.038 (4.4%)# 0.033 (3.9%)* 10/04/2017 76 0.866 -1.6 0.004 (0.5%)# 0.004 (0.5%)# 04/19/2015 74 0.862 -1.7 Total Hip(Left) 06/07/2023 82 0.847 -0.8 0.005 (0.6%)# -0.016 (-1.9%) 10/04/2017 76 0.863 -0.6 0.021 (2.5%)# 0.021 (2.5%)# 04/19/2015 74 0.842 -0.8 Total Hip(Right) 06/07/2023 82 0.752 -1.6 0.012 (1.6%)# 0.093 (14.2%)* 10/04/2017 76 0.659 -2.3 -0.081 (-11.0% -0.081 (-11.0% 04/19/2015 74 0.740 -1.7 *Denotes significance at 95% confidence level, LSC for AP Spine = 0.022 g/cm2, LSC for Total Hip = 0.027 g/cm2 # Denotes dissimilar scan types or analysis methods Clinical Information Provided by Patient: Has taken Glucocorticoids Has used the following medications: Miacalcin (i.e. calcitonin), Vitamin D Has the following medical conditions: Cancer, Hysterectomy Patient maximum height was 66 Menopause Age: 44 Drinks caffeinated beverages Onset of menses at age 12 Number of children 2 Impression: The patient has osteoporosis, based on the Right Femoral Neck T-score. The patient has risk factors, including: history of glucocorticoid therapy. No significant bone loss was observed. Discussion: INCREASED RISK OF FRACTURE. BONE DENSITY IS UNDESIRABLY LOW AT ONE OR MORE SKELETAL SITES, CONSISTE
== END 2023-06-07 09:02 | disposition home or self-care (01) ==
PROVIDERS: PCP Emergency Medicine; Visit Provider Emergency Medicine
DX: Z78.0 Asymptomatic menopausal state (principal); M85.88 Other specified disorders of bone density and structure, other site; M85.852 Other specified disorders of bone density and structure, left thigh; M85.851 Other specified disorders of bone density and structure, right thigh; M81.0 Age-related osteoporosis without current pathological fracture
CPT/HCPCS: 77080

== ENCOUNTER 2024-06-09 14:04 | Outpatient (CLI) | payer MEDICARE, OTHER, SELFPAY ==
--- NOTE | ~2024-06-09 | MM_ITS ---
EXAMINATION: MM screening vivian BI w rolando HISTORY: Screening TECHNIQUE: Craniocaudal and mediolateral oblique 3-D tomosynthesis images were obtained and synthetic 2-D images were generated. CAD analysis was submitted and interpreted. COMPARISON: Comparison to multiple prior studies sequentially, with oldest reviewed study dated 03/2017. BREAST PARENCHYMAL COMPOSITION: Not Dense: The breasts are almost entirely fatty. FINDINGS: There is no evidence of suspicious mass, calcification, or architectural distortion to sugg est malignancy in either breast. There has been no suspicious interval change. IMPRESSION: 1. No mammographic evidence of malignancy. 2. Recommend routine screening mammography in one year. BI-RADS Category 1: Negative Reviewed, dictated and finalized at location B.
--- OUTSIDE RECORDS SUMMARY | 2024-06-09 16:40 | XMS_ITS | Patient Health Summary ---
Author Organization [facility] [employer] Address [address] [place] [address] Care Team Providers Care [place] Manager Name Role Phone Jad Elizabeth MD Primary Care Provider + [phone] Note from [facility],non-owned Affiliates and Associated Physician Practices is amultiple site organization consisting of ambulatory clinics and hospital sitesin [place], [place], [place] and [place]. This disclosure is being madepursuant to the Care Everywhere program and may not contain all information available regarding this patient. Last updated 17.[facility] Allergies No known active allergies Medications * Be aware that medications may not be up to date on this document. Alwaysverify current medications with the patient. * metFORMIN (GLUCOPHAGE) 500 MG tablet(Started 08/05/2018) Take 1 (one) tablet by mouth 2 times daily * losartan (COZAAR) 100 MG tablet(Started 08/29/2018) Take 1 (one) tablet by mouth once daily * ASPIRIN 81 PO Take 1 tablet by mouth once daily * Cholecalciferol (VITAMIN D PO) Take 1 tablet by mouth once daily * ALPRAZolam (XANAX) 0.5 MG tablet(Started 07/24/2019) Take 1 (one) tablet by mouth nightly as needed * cetirizine (ZyrTEC) 10 MG tablet Take 1 (one) tablet by mouth once daily * meloxicam (Mobic) 15 MG tablet(Started 01/15/2023) TAKE 1 TABLET BY MOUTH EVERY DAY 1 refill by 01/15/2024 * alendronate (Fosamax) 70 MG tablet(Started 06/08/2023) Take 1 (one) tablet by mouth every 7 days before meal * amoxicillin (Amoxil) 500 MG tablet(Started 03/30/2023) Take 4 (four) tablets by mouth 1 HOUR BEFORE DENTAL PROCEDURE * celecoxib (CeleBREX) 200 MG capsule(Started 06/13/2023) Take 1 (one) capsule by mouth once daily * cephalexin (Keflex) 500 MG capsule(Started 10/04/2022) TAKE 4 TABLETS BY ORAL ROUTE DIRECTED 1 HOUR PRIOR TO DENTAL PROCEDURE * estradiol (Estrace) 0.1 MG/GM vaginal cream(Started 06/13/2023) Apply 1 g to affected area at bedtime * ezetimibe (Zetia) 10 MG tablet(Started 06/06/2023) Take 1 (one) tablet by mouth once daily * furosemide (Lasix) 20 MG tablet(Started 06/20/2023) Take 1 (one) tablet by mouth 2 times daily * amLODIPine (Norvasc) 10 MG tablet(Started 08/01/2023) Take 1 (one) tablet by mouth once daily Active Problems Problem Noted Date Diagnosed Date History of basal cell carcinoma 09/25/2018 Rash and other nonspecific skin eruption 019 Seborrheic keratoses, inflamed 09/25/2018 Xerosis of skin 09/25/2018 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 (FLUAD TRIVALENT; 65Y+) (AIIV3)(Given 01/02/2019) * Pneumococcal Pcv13 Conj(Given 01/02/2019) Social History Tobacco Use Types Packs/Day Years Used Date Smoking Tobacco: Former Smokeless Tobacco: Former Tobacco Cessation:Counseling Given: Not Answered Alcohol Use Standard Drinks/Week Comments No 0 (1 standard drink = 0.6 oz pur e alcohol) PHQ-2 Answer Date Recorded Patient Health Questionnaire-2 Score 0 06/05/2024 Sex and Gender Information Value Date Recorded Sex Assigned at Not on file Gender Identity Not on file Sexual Orientation Not on file Last Filed Vital Signs Vital Sign Reading Time Taken Comments Blood Pressure 124/74 08/09/2023 11:11 AM CDT Pulse 65 08/09/2023 11:11 AM CDT Temperature 36.8 C (98.3 F) 08/09/2023 11:11 AM CDT Respiratory Rate - - Oxygen Saturation 96% 08/09/2023 11:11 AM CDT Inhaled Oxygen Concentration - - Weight 92.5 kg (204 lb) 08/09/2023 11:11 AM CDT Height 165.1 cm (5' 5 ) 08/09/2023 11:11 AM CDT Body Mass Index 33.95 08/09/2023 11:11 AM CDT Procedures * XR HAND RIGHT 3VW OR MORE(Performed 06/06/2024) Performed for Bilateral hand pain * HEPATIC FUNCTION PANEL(Performed 08/21/2023) Performed for Therapeutic drug monitoring * CREATININE BLOOD(Performed 08/21/2023) Performed for Therapeutic drug monitoring * CBC W AUTO DIFFERENTIAL(Performed 08/21/2023) Performed for Therapeutic drug monitoring * HEPATIC FUNCTION PANEL(Performed 04/17/2022) Performed for Therapeutic drug monitoring * CREATININE BLOOD(Performed 04/17/2022) Performed for Therapeutic drug monitoring * CBC W AUTO DIFFERENTIAL(Performed 04/17/2022) Performed for Therapeutic drug monitoring * C-REACTIVE PROTEIN(Performed 11/16/2021) * ERYTHROCYTE SEDIMENTATION RATE(Performed 11/16/2021) * COMPREHENSIVE METABOLIC PANEL(Performed 11/16/2021) * HEPATIC FUNCTION PANEL(Performed 11/16/2021) Performed for Long-term use of immunosuppressant medication * CBC W AUTO DIFFERENTIAL(Performed 11/16/2021) Performed for Long-term use of immunosuppressant medication * ERYTHROCYTE SEDIMENTATION RATE(Performed 09/27/2021) Performed for Psoriatic arthritis (HCC), Arthralgia, unspecified joint, High risk medications (not anticoagulants) long-term use, Long-term use of immunosuppressant medication * CBC W AUTO DIFFERENTIAL(Performed 09/27/2021) Performed for Psoriatic arthritis (HCC), Arthralgia, unspecified joint, High risk medications (not anticoagulants) long-term use, Long-term use of immunosuppressant medication * COMPREHENSIVE METABOLIC PANEL(Performed 09/27/2021) Performed for Psoriatic arthritis (HCC), Arthralgia, unspecified joint, High risk medications (not anticoagulants) long-term use, Long-term use of immunosuppressant medication * C-REACTIVE PROTEIN(Performed 09/27/2021) Performed for Psoriatic arthritis (HCC), Arthralgia, unspecified joint, High risk medications (not anticoagulants) long-term use, Long-term use of immunosuppressant medication * HLA TYPING B27(Performed 09/27/2021) Performed for Psoriatic arthritis (HCC), Arthralgia, unspecified joint, High risk medications (not anticoagulants) long-term use, Long-term use of immunosuppressant medication * ERYTHROCYTE SEDIMENTATION RATE(Performed 08/10/2021) Performed for Arthralgia, unspecified joint, Osteoarthritis, unspecified osteoarthritis type, unspecified site * C-REACTIVE PROTEIN(Performed 08/10/2021) Performed for Arthralgia, unspecified joint, Osteoarthritis, unspecified osteoarthritis type, unspecified site * COMPREHENSIVE METABOLIC PANEL(Performed 08/10/2021) Performed for Arthralgia, unspecified joint, Osteoarthritis, unspecified osteoarthritis type, unspecified site * CBC W AUTO DIFFERENTIAL(Performed 08/10/2021) Performed for Arthralgia, unspecified joint, Osteoarthritis, unspecified osteoarthritis type, unspecified site * CYCLIC CITRULLINATED PEPTIDE(CCP) AB IGG(Performed 08/10/2021) Performed for Arthralgia, unspecified joint, Osteoarthritis, unspecified osteoarthritis type, unspecified site * RHEUMATOID FACTOR BLOOD QUANTITATIVE(Performed 08/10/2021) Performed for Arthralgia, unspecified joint, Osteoarthritis, unspecified osteoarthritis type, unspecified site * SS-B (SJOGREN'S) ANTIBODY(Performed 08/10/2021) Performed for Arthralgia, unspecified joint, Osteoarthritis, unspecified osteoarthritis type, unspecified site * SS-A (SJOGREN'S) ANTIBODY(Performed 08/10/2021) Performed for Arthralgia, unspecified joint, Osteoarthritis, unspecified osteoarthritis type, unspecified site * XR ANKLE RIGHT 2VW(Performed 08/08/2021) Performed for Arthralgia, unspecified joint, Osteoarthritis, unspecified osteoarthritis type, unspecified site * XR ANKLE LEFT 2VW(Performed 08/08/2021) Performed for Arthralgia, unspecified joint, Osteoarthritis, unspecified osteoarthritis type, unspecified site * XR FOOT RIGHT 3VW OR MORE(Performed 08/08/2021) Performed for Arthralgia, unspecified joint, Osteoarthritis, unspecified osteoarthritis type, unspecified site * XR FOOT LEFT 3VW OR MORE(Performed 08/08/2021) Performed for Arthralgia, unspecified joint, Osteoarthritis, unspecified osteoarthritis type, unspecified site * XR HAND RIGHT 3VW OR MORE(Performed 08/08/2021) Performed for Arthralgia, unspecified joint, Osteoarthritis, unspecified osteoarthritis type, unspecified site * XR HAND LEFT 3VW OR MORE(Performed 08/08/2021) Performed for Arthralgia, unspecified joint, Osteoarthritis, unspecified osteoarthritis type, unspecified site * IA DESTRUCT BENIGN LESION, 1-14(Performed 08/20/2019) Performed for Seborrheic keratoses, inflamed * CULTURE FUNGUS OTHER+FUNGUS SMEAR(Performed 02/01/2015) * CULTURE AEROBIC(Performed 02/01/2015) * DERMATOPATHOLOGY(Performed 04/24/2014) * DERMATOPATHOLOGY(Performed 12/27/2010) * DERMATOPATHOLOGY(Performed 11/10/2010) Results * XR Hand Right 3Vw or More (06/06/2024 1:10 PM CDT) Only the most recent of2 resultswithin the time period is included. 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 > Interpreting Provider: Layton Wooten MD on 06/06/2024 1:38 PM Narrative 06/06/2024 1:38 PM CDT PROCEDURE: XR HAND RIGHT 3VW OR MORE DATE/TIME OF EXAM: 06/06/2024 1:10 PM CLINICAL INFORMATION: None relevant/not provided if blank. Indication: M79.641: Bilateral hand pain M79.642: Bilateral hand pain Additional History: COMPARISON: 08/08/2021. FINDINGS: No fracture or dislocation is present. There is arthritis at several proximal interphalangeal joints, generally moderate, greatest at the second, fourth, and fifth digit proximal interphalangeal and second, third, and fourth digit distal interphalangeal joints, characterized by joint space narrowing, subchondral sclerosis, subchondral cysts, osteophytes, and articular surface erosions. There is soft tissue swelling around the arthritic joints. The metacarpophalangeal joint spaces are normal. There is osteophyte formation at the second metacarpophalangeal joint. There is mild to moderate osteoarthritis at the first carpometacarpal joint and moderate involvement at the scaphoid trapezium trapezoid joint. Chondrocalcinosis is visible in the region of the triangle fibrocartilage. The bones are osteopenic. Procedure Note Layton Wooten MD - 06/06/2024 PROCEDURE: XR HAND RIGHT 3VW OR MORE DATE/TIME OF EXAM: 06/06/2024 1:10 PM CLINICAL INFORMATION: None relevant/not provided if blank. Indication: M79.641: Bilateral hand pain M79.642: Bilateral hand pain Additional History: COMPARISON: 08/08/2021. FINDINGS: No fracture or dislocation is present. There is arthritis at several proximal interphalangeal joints, generally moderate, greatest at the second, fourth, and fifth digit proximal interphalangeal and second,third, and fourth digit distal interphalangeal joints, characterized by joint space narrowing, subchondral sclerosis, subchondral cysts, osteophytes,and articular surface erosions. There is soft tissue swelling around the arthritic joints. The metacarpophalangeal joint spaces are normal. Thereis osteophyte formation at the second metacarpophalangeal joint. There ismild to moderate osteoarthritis at the first carpometacarpal joint andmoderate involvement at the scaphoid trapezium trapezoid joint. Chondrocalcinosisis visible in the region of the triangle fibrocartilage. The bones are osteopenic. 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 > Interpreting Provider: Layton Wooten MD on 06/06/2024 1:38 PM Víctor Olson MD DIAGNOSTIC IMAGING O RDERABLES * CBC WITH DIFFERENTIAL (08/21/2023 11:04 AM CDT) Only the most recent of5 resultswithin the time period is included. White Blood Cell Count 6.6 3.8 - 10.8 Thousand/u L [facility] RBC 4.01 3.80 - 5.10 Million/uL [facility] Hemoglobin 12.7 11.7 - 15.5 g/dL [facility] Hematocrit 39.1 35.0 - 45.0 % [facility] MCV 97.5 80.0 - 100.0 fL [facility] MCH 31.7 27.0 - 33.0 pg [facility] MCHC 32.5 32.0 - 36.0 g/dL [facility] RDW 12.8 11.0 - 15.0 % [facility] Platelet Count 246 140 - 400 Thousand/u L [facility] MPV 11.5 7.5 - 12.5 fL [facility] Neutrophil Absolute 3967 1500 - 7800 cells/uL [facility] Absolute Bands [facility] Metamyelocytes Absolute [facility] Myelocytes Absolute [facility] Absolute Prolymphocytes [facility] Lymphocytes Absolute 1841 850 - 3900 cells/uL [facility] Absolute Monocytes 541 200 - 950 cells/uL [facility] Eosinophils Absolute 211 15 - 500 cells/uL [facility] Basophils Absolute 40 0 - 200 cells/uL [facility] Absolute Blasts [facility] nRBC Absolute [facility] Granulocytes % 60.1 % [facility] Band Neutrophil [facility] Metamyelocytes [facility] Myelocytes [facility] Promyelocytes [facility] Lymphocytes % 27.9 % [facility] Lymphocyte Reactive [facility] Monocytes % 8.2 % [facility] Eosinophils % 3.2 % [facility] Basophils % 0.6 % [facility] Comment: Test Performed at: [facility] [address] RAMON ALVARENGA MD Blasts [facility] nRBC [facility] Comments [facility] Comment: Test Performed at: [facility] [address] RAMON ALVARENGA MD Blood BLOOD SPECIMEN / Unknown 08/21/2023 11:04 AM CDT 08/21/2023 11:04 AM CDT Thomas Cordova MD LAB - HEMATOLOGY ORD ERABLES [address] [address] * HEPATIC FUNCTION PANEL (08/21/2023 11:04 AM CDT) Only the most recent of3 resultswithin the time period is included. Protein Total 6.5 6.1 - 8.1 g/dL [facility] Albumin 4.1 3.6 - 5.1 g/dL [facility] Globulin Total 2.4 1.9 - 3.7 g/dL (calc) [facility] Albumin/Globulin Ratio 1.7 1.0 - 2.5 (calc) [facility] Bilirubin Total 0.4 0.2 - 1.2 mg/dL [facility] Bilirubin Direct 0.1 < OR = 0.2 mg/dL [facility] Bilirubin Indirect 0.3 0.2 - 1.2 mg/dL (calc) [facility] Alkaline Phosphatase 83 37 - 153 U/L [facility] AST 17 10 - 35 U/L [facility] ALT 14 6 - 29 U/L [facility] Comment: Test Performed at: [facility] [address] RAMON ALVARENGA MD Blood BLOOD SPECIMEN / Unknown 08/21/2023 11:04 AM CDT 08/21/2023 11:04 AM CDT Thomas Cordova MD LAB - CHEMISTRY ORDAll [place] Performing Organization Address [facility] [address]/[facility] Co de Phone Number [address] [address] * CREATININE BLOOD (08/21/2023 11:04 AM CDT) Only the most recent of2 resultswithin the time period is included. Creatinine 0.77 0.60 - 0.95 mg/dL [facility] eGFR by Cystatin C 76 > OR = 60 mL/min/1.7 3m2 [facility] Comment: Test Performed at: [facility] [address] RAMON ALVARENGA MD Blood BLOOD SPECIMEN / Unknown 08/21/2023 11:04 AM CDT 08/21/2023 11:04 AM CDT Thomas Cordova MD LAB - CHEMISTRY PING [place] Performing Organization Address City/[facility] [address]/ZIP Co de Phone Number [address] [address] * C-REACTIVE PROTEIN (11/16/2021 2:08 PM CDT) Only the most recent of3 resultswithin the time period is included. C-Reactive Protein 3.2 <8.0 mg/L [facility] Comment: Test Performed at: [facility] [place] [address] [place] [address] SUMA BENDER DO,MPH 11/16/2021 2:08 PM CDT 11/16/2021 2:09 PM CDT Thomas Cordova MD LAB - CHEMISTRY PING [place] Performing Organization Address [facility] [address]/[facility] Co de Phone Number [facility] [address] [place] [address] * ERYTHROCYTE SEDIMENTATION RATE (11/16/2021 2:08 PM CDT) Only the most recent of3 resultswithin the time period is included. Erythrocyte Sedimentation Rate Westergren 17 < OR = 30 mm/h [facility] Comment: Test Performed at: [employer] [address] [place] [address] SUMA BENDER DO,MPH 11/16/2021 2:08 PM CDT 11/16/2021 2:09 PM CDT Thomas Cordova MD LAB - HEMATOLOGY ORD [place] Performing Organization Address [facility] de Phone Number [facility] [address] [place] [address] * (ABNORMAL) COMPREHENSIVE METABOLIC PANEL (11/16/2021 2:08 PM CDT) Only the most recent of3 resultswithin the time period is included. Glucose 100(H) 65 - 99 mg/dL [facility] Comment: Fasting reference interval For someone without known diabetes, a glucose value between 100 and 125 mg/dL is consistent with prediabetes and should be confirmed with a follow-up test. BUN 14 7 - 25 mg/dL [facility] Creatinine 0.68 0.60 - 0.95 mg/dL [facility] eGFR by Cystatin C 87 > OR = 60 mL/min/1. 73m2 [facility] Comment: The eGFR is based on the CKD-EPI 2020 equation. To calculate the new eGFR from a previous Creatinine or Cystatin C result, go to https://www.kidney.org/professionals/ kdoqi/gfr%5Fcalculator BUN/Creatinine Ratio NOT APPLICABLE 6 - 22 (calc) [facility] Sodium 139 135 - 146 mmol/L [facility] Potassium 4.5 3.5 - 5.3 mmol/L [facility] Chloride 104 98 - 110 mmol/L [facility] CO2 27 20 - 32 mmol/L [facility] Calcium 9.0 8.6 - 10.4 mg/dL [facility] Protein Total 6.0(L) 6.1 - 8.1 g/dL [facility] Albumin 4.2 3.6 - 5.1 g/dL [facility] Globulin Total 1.8(L) 1.9 - 3.7 g/dL (calc) [facility] Albumin/Globuli n Ratio 2.3 1.0 - 2.5 (calc) [facility] Bilirubin Total 0.4 0.2 - 1.2 mg/dL [facility] Alkaline Phosphatase 72 37 - 153 U/L [facility] AST 14 10 - 35 U/L [facility] ALT 12 6 - 29 U/L [facility] Comment: Test Performed at: [employer] [address] [place] [address] SUMA BENDER DO,MPH 11/16/2021 2:08 PM CDT 11/16/2021 2:09 PM CDT Thomas Cordova MD LAB - CHEMISTRY ORDE [facility] Performing Organization Address [facility] [address]/[facility] de Phone Number [facility] [address] [place] [address] * HLA TYPING B27 (09/27/2021 10:16 AM CDT) Pathologist [facility] HLA-B27 Antigen NEGATIVE NEGATIVE [facility] Comment: Test Performed at: [facility] [address] [address] GUERRERO LEAVITT MD Blood BLOOD SPECIMEN / Unknown 09/27/2021 10:16 AM CDT 09/27/2021 10:19 AM CDT Magdalena Solo MD LAB - CHEMISTRY ORDERABLES Performing Organization Address [facility] [address]/[facility] Co de Phone Number [facility] [address] [place] [address] * RHEUMATOID FACTOR BLOOD QUANTITATIVE (08/10/2021 2:58 PM CDT) Rheumatoid Factor <14 <14 IU/mL [facility] Comment: Test Performed at: [employer] [address] [place] [address] SUMA BENDER DO,MPH Blood BLOOD SPECIMEN / Unknown 08/10/2021 2:58 PM CDT 08/10/2021 3:00 PM CDT Magdalena Solo MD LAB - CHEMISTRY ORDERABLES Performing Organization Address [facility] [address]/[facility] [place] [address] * SS-B (SJOGREN'S) ANTIBODY (08/10/2021 2:58 PM CDT) Sjogren's Antibodies (SSB) <1.0 NEG <1.0 NEG AI [facility] Comment: Test Performed at: [facility] [place] [address] SUMA BENDER DO,MPH Blood BLOOD SPECIMEN / Unknown 08/10/2021 2:58 PM CDT 08/10/2021 3:00 PM CDT Magdalena Solo MD LAB - CHEMISTRY ORDERABLES Performing Organization Address [facility] [place] [address] * SS-A (SJOGREN'S) ANTIBODY (08/10/2021 2:58 PM CDT) Sjogren's Antibodies (SSA) <1.0 NEG <1.0 NEG AI [facility] Comment: Test Performed at: [place] [address] SUMA BENDER DO,MPH Blood BLOOD SPECIMEN / Unknown 08/10/2021 2:58 PM CDT 08/10/2021 3:00 PM CDT Magdalena Solo MD LAB - CHEMISTRY ORDERABLES Performing Organization Address [facility] [address]/[facility] [place] [address] * CYCLIC CITRULLINATED PEPTIDE(CCP) AB IGG (08/10/2021 2:58 PM CDT) Cyclic Citrullinated Peptide Antibody IgG <16 UNITS [facility] Comment: Reference Range Negative: <20 Weak Positive: 20-39 Moderate Positive: 40-59 Strong Positive: >59 Test Performed at: [place] [address] SUMA BENDER DO,MPH Blood BLOOD SPECIMEN / Unknown 08/10/2021 2:58 PM CDT 08/10/2021 3:00 PM CDT Magdalena Alex Solo MD LAB - CHEMISTRY ORDERABLES [facility] [address] [place] [address] * XR FOOT RIGHT 3VW OR MORE (08/08/2021 1:33 PM CDT) Anatomical Region Laterality Modality Ankle / Foot Radiographic Amanda ging 08/08/2021 2:12 PM CDT Impressions 08/08/2021 2:24 PM CDT Impression : 1. Right and left hands: Moderate to severe arthritis affecting several interphalangeal joints bilaterally with articular surface erosions and mild chronic appearing productive features. 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 Psoriatic arthritis and reactive arthritis are possible. 2. Right left ankles: No significant arthritis. Small calcaneal spurs. 3. Right and left feet: No definite arthritis. This report was electronically signed by LAYTON WOOTEN MD on 08/08/2021 2:24 PM . Narrative 08/08/2021 2:24 PM CDT Exam: 1.XR HAND RIGHT 3VW 2.XR ANKLE RIGHT 2VW 3.XR ANKLE LEFT 2VW 4.XR FOOT RIGHT 3VW 5.XR FOOT LEFT 3VW 6.XR HAND LEFT 3VW History: M25.50: Arthralgia, unspecified joint M19.90: Osteoarthritis, unspecified osteoarthritis type, unspecified site Comparison: None. Findings: Right hand: No fracture or dislocation is present. There is arthritis at multiple joints characterized by joint space narrowing, subchondral sclerosis, subchondral cysts, and osteophytes. This is greatest at the third and fourth distal interphalangeal and fifth proximal interphalangeal where it is moderate to severe with articular surface erosions. There is mild narrowing at the second metacarpophalangeal joint. No erosions are seen at the metacarpophalangeal joints. The bones are osteopenic. There is mild soft tissue swelling around some of the arthritic joints. Left hand: No fracture or dislocation is present. There is arthritis at multiple joints similar to the right hand, severe at some joints including the second, third, and fourth proximal interphalangeal joints and third distal interphalangeal joint. There is articular surface erosion at these joints. There is ankylosis of the fourth finger distal interphalangeal joint. The metacarpophalangeal joint spaces are relatively preserved and no erosions are seen at these joints. In the osteopenic. There is soft tissue swelling around several of the arthritic joints, most notably the second third proximal interphalangeal. Right ankle: No fracture or dislocation is present. The joint spaces are normal. No erosions are seen. Bone density is normal. Mild soft tissue edema. Small calcaneal spur is noted. Left ankle: No fracture or dislocation is present. The joint spaces are normal. No erosions are seen. Bone density is normal. Mild soft tissue edema. Small posterior and moderate plantar calcaneal spurs are present. Right foot: No fracture or dislocation is present. Questionable narrowing of the first and third tarsometatarsal joints although this could be projectional. Otherwise the joint spaces are normal. No erosions. There is mild soft tissue swelling. Left foot: No fracture or dislocation is present. The joint spaces are normal. No erosions are seen. Mild soft tissue swelling. Procedure Note Layton Wooten MD - 08/08/2021 Exam: 1.XR HAND RIGHT 3VW 2.XR ANKLE RIGHT 2VW 3.XR ANKLE LEFT 2VW 4.XR FOOT RIGHT 3VW 5.XR FOOT LEFT 3VW 6.XR HAND LEFT 3VW History: M25.50: Arthralgia, unspecified joint M19.90: Osteoarthritis, unspecified osteoarthritis type, unspecifiedsite Comparison: None. Findings: Right hand: No fracture or dislocation is present. There is arthritis at multiple joints characterized by joint space narrowing, subchondral sclerosis, subchondral cysts, and osteophytes. This is greatest at the third and fourth distal interphalangeal and fifth proximal interphalangeal whereit is moderate to severe with articular surface erosions. There is mild narrowing at the second metacarpophalangeal joint. No erosions are seenat the metacarpophalangeal joints. The bones are osteopenic. There is mild soft tissue swelling around some of the arthritic joints. Left hand: No fracture or dislocation is present. There is arthritis at multiple joints similar to the right hand, severe at some joints including the second, third, and fourth proximal interphalangeal joints and thirddistal interphalangeal joint. There is articular surface erosion at thesejoints. There is ankylosis of the fourth finger distal interphalangeal joint.The metacarpophalangeal joint spaces are relatively preserved and noerosions are seen at these joints. In the osteopenic. There is soft tissueswelling around several of the arthritic joints, most notably the second third proximal interphalangeal. Right ankle: No fracture or dislocation is present. The joint spaces are normal. No erosions are seen. Bone density is normal. Mild soft tissue edema. Small calcaneal spur is noted. Left ankle: No fracture or dislocation is present. The joint spaces are normal. No erosions are seen. Bone density is normal. Mild soft tissue edema.Small posterior and moderate plantar calcaneal spurs are present. Right foot: No fracture or dislocation is present. Questionable narrowing of thefirst and third tarsometatarsal joints although this could be projectional. Otherwise the joint spaces are normal. No erosions. There is mild soft tissue swelling. Left foot: No fracture or dislocation is present. The joint spaces are normal. No erosions are seen. Mild soft tissue swelling. Impression : 1. Right and left hands: Moderate to severe arthritis affecting several interphalangeal joints bilaterally with articular surface erosions and mild chronic appearing productive features. 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 Psoriatic arthritis and reactive arthritis are possible. 2. Right left ankles: No significant arthritis. Small calcaneal spurs. 3. Right and left feet: No definite arthritis. This report was electronically signed by LAYTON WOOTEN MD on08/08/2021 2:24 PM . Magdalena Solo MD DIAGNOSTIC IMAG ING ORDERABLES * XR FOOT LEFT 3VW OR MORE (08/08/2021 1:33 PM CDT) Anatomical Region Laterality Modality Ankle / Foot Radiographic Amanda ging 08/08/2021 2:12 PM CDT Impressions 08/08/2021 2:24 PM CDT Impression : 1. Right and left hands: Moderate to severe arthritis affecting several interphalangeal joints bilaterally with articular surface erosions and mild chronic appearing productive features. 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 Psoriatic arthritis and reactive arthritis are possible. 2. Right left ankles: No significant arthritis. Small calcaneal spurs. 3. Right and left feet: No definite arthritis. This report was electronically signed by LAYTON WOOTEN MD on 08/08/2021 2:24 PM . Narrative 08/08/2021 2:24 PM CDT Exam: 1.XR HAND RIGHT 3VW 2.XR ANKLE RIGHT 2VW 3.XR ANKLE LEFT 2VW 4.XR FOOT RIGHT 3VW 5.XR FOOT LEFT 3VW 6.XR HAND LEFT 3VW History: M25.50: Arthralgia, unspecified joint M19.90: Osteoarthritis, unspecified osteoarthritis type, unspecified site Comparison: None. Findings: Right hand: No fracture or dislocation is present. There is arthritis at multiple joints characterized by joint space narrowing, subchondral sclerosis, subchondral cysts, and osteophytes. This is greatest at the third and fourth distal interphalangeal and fifth proximal interphalangeal where it is moderate to severe with articular surface erosions. There is mild narrowing at the second metacarpophalangeal joint. No erosions are seen at the metacarpophalangeal joints. The bones are osteopenic. There is mild soft tissue swelling around some of the arthritic joints. Left hand: No fracture or dislocation is present. There is arthritis at multiple joints similar to the right hand, severe at some joints including the second, third, and fourth proximal interphalangeal joints and third distal interphalangeal joint. There is articular surface erosion at these joints. There is ankylosis of the fourth finger distal interphalangeal joint. The metacarpophalangeal joint spaces are relatively preserved and no erosions are seen at these joints. In the osteopenic. There is soft tissue swelling around several of the arthritic joints, most notably the second third proximal interphalangeal. Right ankle: No fracture or dislocation is present. The joint spaces are normal. No erosions are seen. Bone density is normal. Mild soft tissue edema. Small calcaneal spur is noted. Left ankle: No fracture or dislocation is present. The joint spaces are normal. No erosions are seen. Bone density is normal. Mild soft tissue edema. Small posterior and moderate plantar calcaneal spurs are present. Right foot: No fracture or dislocation is present. Questionable narrowing of the first and third tarsometatarsal joints although this could be projectional. Otherwise the joint spaces are normal. No erosions. There is mild soft tissue swelling. Left foot: No fracture or dislocation is present. The joint spaces are normal. No erosions are seen. Mild soft tissue swelling. Procedure Note Layton Wooten MD - 08/08/2021 Exam: 1.XR HAND RIGHT 3VW 2.XR ANKLE RIGHT 2VW 3.XR ANKLE LEFT 2VW 4.XR FOOT RIGHT 3VW 5.XR FOOT LEFT 3VW 6.XR HAND LEFT 3VW History: M25.50: Arthralgia, unspecified joint M19.90: Osteoarthritis, unspecified osteoarthritis type, unspecifiedsite Comparison: None. Findings: Right hand: No fracture or dislocation is present. There is arthritis at multiple joints characterized by joint space narrowing, subchondral sclerosis, subchondral cysts, and osteophytes. This is greatest at the third and fourth distal interphalangeal and fifth proximal interphalangeal whereit is moderate to severe with articular surface erosions. There is mild narrowing at the second metacarpophalangeal joint. No erosions are seenat the metacarpophalangeal joints. The bones are osteopenic. There is mild soft tissue swelling around some of the arthritic joints. Left hand: No fracture or dislocation is present. There is arthritis at multiple joints similar to the right hand, severe at some joints including the second, third, and fourth proximal interphalangeal joints and thirddistal interphalangeal joint. There is articular surface erosion at thesejoints. There is ankylosis of the fourth finger distal interphalangeal joint.The metacarpophalangeal joint spaces are relatively preserved and noerosions are seen at these joints. In the osteopenic. There is soft tissueswelling around several of the arthritic joints, most notably the second third proximal interphalangeal. Right ankle: No fracture or dislocation is present. The joint spaces are normal. No erosions are seen. Bone density is normal. Mild soft tissue edema. Small calcaneal spur is noted. Left ankle: No fracture or dislocation is present. The joint spaces are normal. No erosions are seen. Bone density is normal. Mild soft tissue edema.Small posterior and moderate plantar calcaneal spurs are present. Right foot: No fracture or dislocation is present. Questionable narrowing of thefirst and third tarsometatarsal joints although this could be projectional. Otherwise the joint spaces are normal. No erosions. There is mild soft tissue swelling. Left foot: No fracture or dislocation is present. The joint spaces are normal. No erosions are seen. Mild soft tissue swelling. Impression : 1. Right and left hands: Moderate to severe arthritis affecting several interphalangeal joints bilaterally with articular surface erosions and mild chronic appearing productive features. 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 Psoriatic arthritis and reactive arthritis are possible. 2. Right left ankles: No significant arthritis. Small calcaneal spurs. 3. Right and left feet: No definite arthritis. This report was electronically signed by LAYTON WOOTEN MD on08/08/2021 2:24 PM . Magdalena Solo MD DIAGNOSTIC IMAG ING ORDERABLES * XR ANKLE RIGHT 2VW (08/08/2021 1:33 PM CDT) Anatomical Region Laterality Modality Lower Extremity Radiographic Amanda ging 08/08/2021 2:12 PM CDT Impressions 08/08/2021 2:24 PM CDT Impression : 1. Right and left hands: Moderate to severe arthritis affecting several interphalangeal joints bilaterally with articular surface erosions and mild chronic appearing productive features. 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 Psoriatic arthritis and reactive arthritis are possible. 2. Right left ankles: No significant arthritis. Small calcaneal spurs. 3. Right and left feet: No definite arthritis. This report was electronically signed by LAYTON WOOTEN MD on 08/08/2021 2:24 PM . Narrative 08/08/2021 2:24 PM CDT Exam: 1.XR HAND RIGHT 3VW 2.XR ANKLE RIGHT 2VW 3.XR ANKLE LEFT 2VW 4.XR FOOT RIGHT 3VW 5.XR FOOT LEFT 3VW 6.XR HAND LEFT 3VW History: M25.50: Arthralgia, unspecified joint M19.90: Osteoarthritis, unspecified osteoarthritis type, unspecified site Comparison: None. Findings: Right hand: No fracture or dislocation is present. There is arthritis at multiple joints characterized by joint space narrowing, subchondral sclerosis, subchondral cysts, and osteophytes. This is greatest at the third and fourth distal interphalangeal and fifth proximal interphalangeal where it is moderate to severe with articular surface erosions. There is mild narrowing at the second metacarpophalangeal joint. No erosions are seen at the metacarpophalangeal joints. The bones are osteopenic. There is mild soft tissue swelling around some of the arthritic joints. Left hand: No fracture or dislocation is present. There is arthritis at multiple joints similar to the right hand, severe at some joints including the second, third, and fourth proximal interphalangeal joints and third distal interphalangeal joint. There is articular surface erosion at these joints. There is ankylosis of the fourth finger distal interphalangeal joint. The metacarpophalangeal joint spaces are relatively preserved and no erosions are seen at these joints. In the osteopenic. There is soft tissue swelling around several of the arthritic joints, most notably the second third proximal interphalangeal. Right ankle: No fracture or dislocation is present. The joint spaces are normal. No erosions are seen. Bone density is normal. Mild soft tissue edema. Small calcaneal spur is noted. Left ankle: No fracture or dislocation is present. The joint spaces are normal. No erosions are seen. Bone density is normal. Mild soft tissue edema. Small posterior and moderate plantar calcaneal spurs are present. Right foot: No fracture or dislocation is present. Questionable narrowing of the first and third tarsometatarsal joints although this could be projectional. Otherwise the joint spaces are normal. No erosions. There is mild soft tissue swelling. Left foot: No fracture or dislocation is present. The joint spaces are normal. No erosions are seen. Mild soft tissue swelling. Procedure Note Layton Wooten MD - 08/08/2021 Exam: 1.XR HAND RIGHT 3VW 2.XR ANKLE RIGHT 2VW 3.XR ANKLE LEFT 2VW 4.XR FOOT RIGHT 3VW 5.XR FOOT LEFT 3VW 6.XR HAND LEFT 3VW History: M25.50: Arthralgia, unspecified joint M19.90: Osteoarthritis, unspecified osteoarthritis type, unspecifiedsite Comparison: None. Findings: Right hand: No fracture or dislocation is present. There is arthritis at multiple joints characterized by joint space narrowing, subchondral sclerosis, subchondral cysts, and osteophytes. This is greatest at the third and fourth distal interphalangeal and fifth proximal interphalangeal whereit is moderate to severe with articular surface erosions. There is mild narrowing at the second metacarpophalangeal joint. No erosions are seenat the metacarpophalangeal joints. The bones are osteopenic. There is mild soft tissue swelling around some of the arthritic joints. Left hand: No fracture or dislocation is present. There is arthritis at multiple joints similar to the right hand, severe at some joints including the second, third, and fourth proximal interphalangeal joints and thirddistal interphalangeal joint. There is articular surface erosion at thesejoints. There is ankylosis of the fourth finger distal interphalangeal joint.The metacarpophalangeal joint spaces are relatively preserved and noerosions are seen at these joints. In the osteopenic. There is soft tissueswelling around several of the arthritic joints, most notably the second third proximal interphalangeal. Right ankle: No fracture or dislocation is present. The joint spaces are normal. No erosions are seen. Bone density is normal. Mild soft tissue edema. Small calcaneal spur is noted. Left ankle: No fracture or dislocation is present. The joint spaces are normal. No erosions are seen. Bone density is normal. Mild soft tissue edema.Small posterior and moderate plantar calcaneal spurs are present. Right foot: No fracture or dislocation is present. Questionable narrowing of thefirst and third tarsometatarsal joints although this could be projectional. Otherwise the joint spaces are normal. No erosions. There is mild soft tissue swelling. Left foot: No fracture or dislocation is present. The joint spaces are normal. No erosions are seen. Mild soft tissue swelling. Impression : 1. Right and left hands: Moderate to severe arthritis affecting several interphalangeal joints bilaterally with articular surface erosions and mild chronic appearing productive features. 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 Psoriatic arthritis and reactive arthritis are possible. 2. Right left ankles: No significant arthritis. Small calcaneal spurs. 3. Right and left feet: No definite arthritis. This report was electronically signed by LAYTON WOOTEN MD on08/08/2021 2:24 PM . Magdalena Solo MD DIAGNOSTIC IMAG ING ORDERABLES * XR ANKLE LEFT 2VW (08/08/2021 1:33 PM CDT) Anatomical Region Laterality Modality Lower Extremity Radiographic Amanda ging 08/08/2021 2:12 PM CDT Impressions 08/08/2021 2:24 PM CDT Impression : 1. Right and left hands: Moderate to severe arthritis affecting several interphalangeal joints bilaterally with articular surface erosions and mild chronic appearing productive features. 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 Psoriatic arthritis and reactive arthritis are possible. 2. Right left ankles: No significant arthritis. Small calcaneal spurs. 3. Right and left feet: No definite arthritis. This report was electronically signed by LAYTON WOOTEN MD on 08/08/2021 2:24 PM . Narrative 08/08/2021 2:24 PM CDT Exam: 1.XR HAND RIGHT 3VW 2.XR ANKLE RIGHT 2VW 3.XR ANKLE LEFT 2VW 4.XR FOOT RIGHT 3VW 5.XR FOOT LEFT 3VW 6.XR HAND LEFT 3VW History: M25.50: Arthralgia, unspecified joint M19.90: Osteoarthritis, unspecified osteoarthritis type, unspecified site Comparison: None. Findings: Right hand: No fracture or dislocation is present. There is arthritis at multiple joints characterized by joint space narrowing, subchondral sclerosis, subchondral cysts, and osteophytes. This is greatest at the third and fourth distal interphalangeal and fifth proximal interphalangeal where it is moderate to severe with articular surface erosions. There is mild narrowing at the second metacarpophalangeal joint. No erosions are seen at the metacarpophalangeal joints. The bones are osteopenic. There is mild soft tissue swelling around some of the arthritic joints. Left hand: No fracture or dislocation is present. There is arthritis at multiple joints similar to the right hand, severe at some joints including the second, third, and fourth proximal interphalangeal joints and third distal interphalangeal joint. There is articular surface erosion at these joints. There is ankylosis of the fourth finger distal interphalangeal joint. The metacarpophalangeal joint spaces are relatively preserved and no erosions are seen at these joints. In the osteopenic. There is soft tissue swelling around several of the arthritic joints, most notably the second third proximal interphalangeal. Right ankle: No fracture or dislocation is present. The joint spaces are normal. No erosions are seen. Bone density is normal. Mild soft tissue edema. Small calcaneal spur is noted. Left ankle: No fracture or dislocation is present. The joint spaces are normal. No erosions are seen. Bone density is normal. Mild soft tissue edema. Small posterior and moderate plantar calcaneal spurs are present. Right foot: No fracture or dislocation is present. Questionable narrowing of the first and third tarsometatarsal joints although this could be projectional. Otherwise the joint spaces are normal. No erosions. There is mild soft tissue swelling. Left foot: No fracture or dislocation is present. The joint spaces are normal. No erosions are seen. Mild soft tissue swelling. Procedure Note Layton Wooten MD - 08/08/2021 Exam: 1.XR HAND RIGHT 3VW 2.XR ANKLE RIGHT 2VW 3.XR ANKLE LEFT 2VW 4.XR FOOT RIGHT 3VW 5.XR FOOT LEFT 3VW 6.XR HAND LEFT 3VW History: M25.50: Arthralgia, unspecified joint M19.90: Osteoarthritis, unspecified osteoarthritis type, unspecifiedsite Comparison: None. Findings: Right hand: No fracture or dislocation is present. There is arthritis at multiple joints characterized by joint space narrowing, subchondral sclerosis, subchondral cysts, and osteophytes. This is greatest at the third and fourth distal interphalangeal and fifth proximal interphalangeal whereit is moderate to severe with articular surface erosions. There is mild narrowing at the second metacarpophalangeal joint. No erosions are seenat the metacarpophalangeal joints. The bones are osteopenic. There is mild soft tissue swelling around some of the arthritic joints. Left hand: No fracture or dislocation is present. There is arthritis at multiple joints similar to the right hand, severe at some joints including the second, third, and fourth proximal interphalangeal joints and thirddistal interphalangeal joint. There is articular surface erosion at thesejoints. There is ankylosis of the fourth finger distal interphalangeal joint.The metacarpophalangeal joint spaces are relatively preserved and noerosions are seen at these joints. In the osteopenic. There is soft tissueswelling around several of the arthritic joints, most notably the second third proximal interphalangeal. Right ankle: No fracture or dislocation is present. The joint spaces are normal. No erosions are seen. Bone density is normal. Mild soft tissue edema. Small calcaneal spur is noted. Left ankle: No fracture or dislocation is present. The joint spaces are normal. No erosions are seen. Bone density is normal. Mild soft tissue edema.Small posterior and moderate plantar calcaneal spurs are present. Right foot: No fracture or dislocation is present. Questionable narrowing of thefirst and third tarsometatarsal joints although this could be projectional. Otherwise the joint spaces are normal. No erosions. There is mild soft tissue swelling. Left foot: No fracture or dislocation is present. The joint spaces are normal. No erosions are seen. Mild soft tissue swelling. Impression : 1. Right and left hands: Moderate to severe arthritis affecting several interphalangeal joints bilaterally with articular surface erosions and mild chronic appearing productive features. 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 Psoriatic arthritis and reactive arthritis are possible. 2. Right left ankles: No significant arthritis. Small calcaneal spurs. 3. Right and left feet: No definite arthritis. This report was electronically signed by LAYTON WOOTEN MD on08/08/2021 2:24 PM . Magdalena Solo MD DIAGNOSTIC IMAG ING ORDERABLES * XR HAND LEFT 3VW OR MORE (08/08/2021 1:33 PM CDT) Anatomical Region Laterality Modality Wrist / Hand Radiographic Amanda ging 08/08/2021 2:12 PM CDT Impressions 08/08/2021 2:24 PM CDT Impression : 1. Right and left hands: Moderate to severe arthritis affecting several interphalangeal joints bilaterally with articular surface erosions and mild chronic appearing productive features. 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 Psoriatic arthritis and reactive arthritis are possible. 2. Right left ankles: No significant arthritis. Small calcaneal spurs. 3. Right and left feet: No definite arthritis. This report was electronically signed by LAYTON WOOTEN MD on 08/08/2021 2:24 PM . Narrative 08/08/2021 2:24 PM CDT Exam: 1.XR HAND RIGHT 3VW 2.XR ANKLE RIGHT 2VW 3.XR ANKLE LEFT 2VW 4.XR FOOT RIGHT 3VW 5.XR FOOT LEFT 3VW 6.XR HAND LEFT 3VW History: M25.50: Arthralgia, unspecified joint M19.90: Osteoarthritis, unspecified osteoarthritis type, unspecified site Comparison: None. Findings: Right hand: No fracture or dislocation is present. There is arthritis at multiple joints characterized by joint space narrowing, subchondral sclerosis, subchondral cysts, and osteophytes. This is greatest at the third and fourth distal interphalangeal and fifth proximal interphalangeal where it is moderate to severe with articular surface erosions. There is mild narrowing at the second metacarpophalangeal joint. No erosions are seen at the metacarpophalangeal joints. The bones are osteopenic. There is mild soft tissue swelling around some of the arthritic joints. Left hand: No fracture or dislocation is present. There is arthritis at multiple joints similar to the right hand, severe at some joints including the second, third, and fourth proximal interphalangeal joints and third distal interphalangeal joint. There is articular surface erosion at these joints. There is ankylosis of the fourth finger distal interphalangeal joint. The metacarpophalangeal joint spaces are relatively preserved and no erosions are seen at these joints. In the osteopenic. There is soft tissue swelling around several of the arthritic joints, most notably the second third proximal interphalangeal. Right ankle: No fracture or dislocation is present. The joint spaces are normal. No erosions are seen. Bone density is normal. Mild soft tissue edema. Small calcaneal spur is noted. Left ankle: No fracture or dislocation is present. The joint spaces are normal. No erosions are seen. Bone density is normal. Mild soft tissue edema. Small posterior and moderate plantar calcaneal spurs are present. Right foot: No fracture or dislocation is present. Questionable narrowing of the first and third tarsometatarsal joints although this could be projectional. Otherwise the joint spaces are normal. No erosions. There is mild soft tissue swelling. Left foot: No fracture or dislocation is present. The joint spaces are normal. No erosions are seen. Mild soft tissue swelling. Procedure Note Layton Wooten MD - 08/08/2021 Exam: 1.XR HAND RIGHT 3VW 2.XR ANKLE RIGHT 2VW 3.XR ANKLE LEFT 2VW 4.XR FOOT RIGHT 3VW 5.XR FOOT LEFT 3VW 6.XR HAND LEFT 3VW History: M25.50: Arthralgia, unspecified joint M19.90: Osteoarthritis, unspecified osteoarthritis type, unspecifiedsite Comparison: None. Findings: Right hand: No fracture or dislocation is present. There is arthritis at multiple joints characterized by joint space narrowing, subchondral sclerosis, subchondral cysts, and osteophytes. This is greatest at the third and fourth distal interphalangeal and fifth proximal interphalangeal whereit is moderate to severe with articular surface erosions. There is mild narrowing at the second metacarpophalangeal joint. No erosions are seenat the metacarpophalangeal joints. The bones are osteopenic. There is mild soft tissue swelling around some of the arthritic joints. Left hand: No fracture or dislocation is present. There is arthritis at multiple joints similar to the right hand, severe at some joints including the second, third, and fourth proximal interphalangeal joints and thirddistal interphalangeal joint. There is articular surface erosion at thesejoints. There is ankylosis of the fourth finger distal interphalangeal joint.The metacarpophalangeal joint spaces are relatively preserved and noerosions are seen at these joints. In the osteopenic. There is soft tissueswelling around several of the arthritic joints, most notably the second third proximal interphalangeal. Right ankle: No fracture or dislocation is present. The joint spaces are normal. No erosions are seen. Bone density is normal. Mild soft tissue edema. Small calcaneal spur is noted. Left ankle: No fracture or dislocation is present. The joint spaces are normal. No erosions are seen. Bone density is normal. Mild soft tissue edema.Small posterior and moderate plantar calcaneal spurs are present. Right foot: No fracture or dislocation is present. Questionable narrowing of thefirst and third tarsometatarsal joints although this could be projectional. Otherwise the joint spaces are normal. No erosions. There is mild soft tissue swelling. Left foot: No fracture or dislocation is present. The joint spaces are normal. No erosions are seen. Mild soft tissue swelling. Impression : 1. Right and left hands: Moderate to severe arthritis affecting several interphalangeal joints bilaterally with articular surface erosions and mild chronic appearing productive features. 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 Psoriatic arthritis and reactive arthritis are possible. 2. Right left ankles: No significant arthritis. Small calcaneal spurs. 3. Right and left feet: No definite arthritis. This report was electronically signed by LAYTON WOOTEN MD on08/08/2021 2:24 PM . Magdalena Solo MD DIAGNOSTIC IMAG ING ORDERABLES * IA DESTRUCT BENIGN LESION, 1-14 (08/20/2019 3:29 PM CDT) Narrative Josseline Arguello MD - 08/20/2019 3:29 PM CDT Josseline Arguello MD 08/20/2019 3:29 PM Diagnosis and treatment options discussed. Cryotherapy (Liquid Nitrogen) to 3 lesions for 6 seconds each. Number of cycles: 1. Wound care reviewed. Josseline Arguello MD PROCEDURE/MINOR SURG ICAL ORDERABLES * CULTURE FUNGUS OTHER+FUNGUS SMEAR (02/01/2015 12:00 AM PROP AND SCENERY MAKER) Fungus Stain Final report [facility] Result 1 [facility] (BE[facility]) Comment:KATHY/Calcofluor prepa ration: no fungus observed. Culture Fungus (Mycology) Final report [facility] ([facility]) Result 1 [facility] Comment:No yeast or mold iso lated after 4 weeks. Skin (tissue) specimen (specimen) 02/01/2015 02/01/2015 10:46 PM PROP AND SCENERY MAKER Narrative [facility]) - 03/05/2015 4:19 PM PROP AND SCENERY MAKER Abdomen and R groin Specimen Type->Skin Performed at: - [address] [id number] Neuroscience Specialist: Orestes Blackwell PhD, Phone: [phone] Josseline Arguello MD LAB - MICROBIOLOGY O RDERABLES [facility] ([facility]) * (ABNORMAL) CULTURE AEROBIC (02/01/2015 12:00 AM PROP AND SCENERY MAKER) Pathologist [facility] Aerobic Bacterial Culture Final report(A) [facility] ([facility]) Result 1 (A) [facility] ([facility]) Comment: Methicillin - resistant Staphylococcus aureus Light growth Based on resistance to oxacillin this isolate would be resistant to all currently available beta-lactam antimicrobial agents, with the exception of the newer cephalosporins with anti-MRSA activity, such as Ceftaroline Antimicrobial Susceptibility [facility] ([facility]) Comment: S = Susceptible; I = Intermediate; R = Resistant P = Positive; N = Negative MICS are expressed in micrograms per mL Antibiotic RSLT#1 RSLT#2 RSLT#3 RSLT#4 Ciprofloxacin S<=0.5 Clindamycin S<=0.25 Erythromycin R>=8 Gentamicin S<=0.5 Levofloxacin S =0.25 Linezolid S =2 Oxacillin R>=4 Penicillin R>=0.5 Rifampin S<=0.5 Tetracycline S<=1 Trimethoprim/Sulfa S<=10 Vancomycin S<=0.5 Skin (tissue) specimen (specimen) 02/01/2015 02/01/2015 10:46 PM PROP AND SCENERY MAKER N[facility]ative [facility] - 03/05/2015 4:19 PM PROP AND SCENERY MAKER Abdomen pustules Specimen Type->Skin Performed at: [address] [id number] Neuroscience Specialist: Orestes Blackwell PhD, Phone: [phone] Josseline Arguello MD LAB - MICROBIOLOGY O RDERABLES Performing Organization Address City/[facility] [address]/[facility] Co de Phone Number [facility]) * PATHOLOGY TISSUE FOR DERMATOLOGY (04/24/2014 12:23 PM PROP AND SCENERY MAKER) Only the most recent of3 resultswithin the time period is included. Result CASE: [id number] PATIENT: ARIELA TRINH PATHOLOGIC DIAGNOSIS: Left inguinal fold: LICHEN PLANUS CLINICAL DATA: LP with overlying tinea. GROSS DESCRIPTION: Received is one formalin filled container labeled with the patient's name and designated left inguinal fold. The specimen consists of a punch biopsy measuring [id number]. Jar 0. MICROSCOPIC DESCRIPTION: There is saw-toothed epidermal hyperplasia, hypergranulosi s, and compact hyperorthokera tosis. There is a lichenoid infiltrate of lymphocytes that obscures the dermal-epiderm al junction in association with vacuolar alteration and necrotic keratinocytes. A GMS stain does not highlight any fungal organisms. Electronically signed out by Kandace Escobar M.D. 04/30/2014 1:08:02PM [facility] DERMATOLOGY LAB Comment: Performed at: Dermatopathology Laboratory [facility] - Department of Dermatology [address] [place] [address] [address] [place] [address] Phone number: [phone] FAX: [phone] Skin (tissue) specimen (specimen) 04/24/2014 12:23 PM PROP AND SCENERY MAKER 04/27/2014 Narrative [facility] D[facility] - 04/30/2014 1:08 PM PROP AND SCENERY MAKER Specimen A: Type->Punch Site->L inguinal fold History->violaceous scaly patches in inguinal and inframammary folds Impression->LP with overlying tinea Check Margins:->N/A Prior Biopsy->N/A Josseline Arguello MD LAB - PATHOLOGY/CYTO LOGY ORDERABLES [facility] [address] [facility] [place] [address], [facility] [phone] Care Teams Tennis Centre Manager Relationship Specialty Start Date End Date Jad Elizabeth MD [address] [place] [address] [address] [place] [address] PCP - General 04/24/14
--- OUTSIDE RECORDS SUMMARY | 2024-06-09 16:40 | XMS_ITS | Clinical Summary ---
Author Organization [facility] Address [address] [place] [address] Care Team Providers Care Staff Writer Name Role Phone Jad Elizabeth MD Primary Care Provider + [phone] [facility],non-owned Affiliates and Associated Physician Practices is amultiple site organization consisting of ambulatory clinics and hospital sitesin [place], [place], [place] and [place]. This disclosure is being madepursuant to the Care Everywhere program and may not contain all information available regarding this patient. Last updated 17.[facility] Allergies No known active allergies Medications * Be aware that medications may not be up to date on this document. Alwaysverify current medications with the patient. Medication Sig Dispensed Refills Start Date End Date Status metFORMIN (GLUCOPHAGE) 500 MG tablet Take 1 (one) tablet by mouth 2 times daily 08/05/2018 Active losartan (COZAAR) 100 MG tablet Take 1 (one) tablet by mouth once daily 08/29/2018 Active ASPIRIN 81 PO Take 1 tablet by mouth once daily Active Cholecalciferol (VITAMIN D PO) Take 1 tablet by mouth once daily Active ALPRAZolam (XANAX) 0.5 MG tablet Take 1 (one) tablet by mouth nightly as needed 07/24/2019 Active cetirizine (ZyrTEC) 10 MG tablet Take 1 (one) tablet by mouth once daily Active meloxicam (Mobic) 15 MG tablet TAKE 1 TABLET BY MOUTH EVERY DAY 90 tablet 1 01/15/2023 Active alendronate (Fosamax) 70 MG tablet Take 1 (one) tablet by mouth every 7 days before meal 06/08/2023 Active amoxicillin (Amoxil) 500 MG tablet Take 4 (four) tablets by mouth 1 HOUR BEFORE DENTAL PROCEDURE 03/30/2023 Active celecoxib (CeleBREX) 200 MG capsule Take 1 (one) capsule by mouth once daily 06/13/2023 Active cephalexin (Keflex) 500 MG capsule TAKE 4 TABLETS BY ORAL ROUTE DIRECTED 1 HOUR PRIOR TO DENTAL PROCEDURE 10/04/2022 Active estradiol (Estrace) 0.1 MG/GM vaginal cream Apply 1 g to affected area at bedtime 06/13/2023 Active ezetimibe (Zetia) 10 MG tablet Take 1 (one) tablet by mouth once daily 06/06/2023 Active furosemide (Lasix) 20 MG tablet Take 1 (one) tablet by mouth 2 times daily 06/20/2023 Active amLODIPine (Norvasc) 10 MG tablet Take 1 (one) tablet by mouth once daily 08/01/2023 Active Active Problems Problem Noted Date Diagnosed Date History of basal cell carcinoma 09/25/2018 Rash and other nonspecific skin eruption 019 Seborrheic keratoses, inflamed 09/25/2018 Xerosis of skin 09/25/2018 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 Encounters Date Type Department Care Team Description 06/06/2024 1:30 PM CDT [facility] [address] [place] [phone] Venkat Wilson, VICKIE-ELECTRICIAN BUS Arrived 06/06/2024 1:03 PM CDT - 06/06/2024 11:59 PM CDT Hospital Encounter [facility] DIAGNOSTIC RAD [address] [place] [address] Víctor Olson MD Discharge Disposition: Home or Self Care 06/06/2024 Travel 06/05/2024 Travel 06/04/2024 [facility] [address] [place] [phone] Víctor Olson MD Bilateral hand pain 05/26/2024 Travel from Last 3 Months Immunizations Name Administration Dates Next Due INFLUENZA VACCINE 12/28/2021 INFLUENZA VACCINE, ADJUVANTE D, TRIV. (FLUAD TRIVALENT; 65Y+) (AIIV3) 01/02/2019 Pneumococcal Pcv13 Conj 01/02/2019 Family History Medical History Relation Name Comments Cancer - Skin, Non Melanoma Father Allergy (Severe) Neg Hx Asthma Neg Hx CVA Neg Hx Cancer Neg Hx Cancer - Breast Neg Hx Cancer - Other Neg Hx Cancer - Skin, Melanoma Neg Hx Eczema Neg Hx Hemophilia Neg Hx Psoriasis Neg Hx Rashes/Skin Problems Neg Hx Relation Name Status Comments Father Social History Tobacco Use Types Packs/Day Years [...] Mass Index 33.95 08/09/2023 11:11 AM CDT Plan of Treatment Health Maintenance Due Date Last Done Comments BONE DENSITY TESTING 1940 MEDICARE AWV 12 MONTHS 1940 DTAP/TDAP/TD VACCINES (1 - Tdap) 10/21/1958 ZOSTER VACCINE (1 of 2) 10/21/1989 Respiratory Syncytial Virus (RSV) Vaccine Pt: or over 60 yrs (1 - 1-dose 75+ series) 10/21/2014 PNEUMOCOCCAL VACCINE 50+ (2 of 2 - PPSV23) 01/03/2020 01/02/2019 COVID-19 VACCINE ( - season) 2023 01/11/2022, 06/27/2021, 05/25/2020, Additional history exists INFLUENZA VACCINE (#1) 2023 12/28/2021, 2018 DEPRESSION SCREENING Completed 06/06/2024, 09/08/19 22 HEPATITIS B VACCINE Aged Out No longe r eligible based on patient's age to complete this topic HIB VACCINE Aged Out No longer eligi ble based on patient's age to complete this topic HPV VACCINE Aged Out No longer eligi ble based on patient's age to complete this topic MENINGOCOCCAL (Group B) VACCINE SHARED DECISION-MAKING Aged Out No longer eligible based on patient's age to complete this topic MENINGOCOCCAL GROUPS A/C/Y/W VACCINE Aged Out No longer eligible based on patient's age to complete this topic Procedures Procedure Name Priority Date/Time Associated Diagnosis Comments XR HAND RIGHT 3VW OR MORE Routine 06/06/2024 1:10 PM CDT Bilateral hand pain from Last 3 Months Results * XR Hand Right 3Vw or More (06/06/2024 1:10 PM CDT) Anatomical Region Laterality Modality Wrist / Hand Computed Radiogr aphy 06/06/2024 1:34 PM CDT Impressions 06/06/2024 1:38 PM CDT IMPRESSION: 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 > Interpreting Provider: Layton Webber MD on 06/06/2024 1:38 PM Narrative 06/06/2024 [...] The bones are osteopenic. Procedure Note Layton Webber MD - 06/06/2024 PROCEDURE: XR HAND RIGHT [...] erosive osteoarthritis, progressed. > Interpreting Provider: Layton Webber MD on 06/06/2024 1:38 PM Víctor Olson MD DIAGNOSTIC IMAGING O RDERABLES from Last 3 Months Care Teams Staff Writer Relationship Specialty Start Date End Date Jad Elizabeth MD [address] [facility] [address] [place] [address] PCP - General 04/24/14
--- OUTSIDE RECORDS SUMMARY | 2024-06-09 16:40 | XMS_ITS | Referral Summary ---
Author Organization [facility] [address] Address [address] [place] [id number] Care Team Providers Care Care Transition Mgr Name Role Phone Jad Elizabeth MD Primary Care Provide r Allergies No known active allergies Medications ALPRAZolam (XANAX) 0.5 mg tablet Take 1 tablet (0.5 mg total) by mouth nightly as needed 07/24/2019 Active amLODIPine (NORVASC) 10 mg tablet Take 1 tablet (10 mg total) by mouth daily Active cetirizine (ZyrTEC) 10 mg tablet Take 1 tablet (10 mg total) by mouth daily Active losartan (COZAAR) 100 mg tablet Take 1 tablet (100 mg total) by mouth daily Active meloxicam (MOBIC) 15 mg tablet Take 1 tablet (15 mg total) by mouth daily 12/17/2023 Active metFORMIN (GLUCOPHAGE) 500 mg tablet Take by mouth 2 (two) times a day with meals Active ibandronate (BONIVA) 150 mg tablet TAKE 1 TABLET (150 MG) BY MOUTH MONTLY 12/12/2023 Active Active Problems No known active problems Social History Tobacco Use Types Packs/Day Years Used Date Smoking Tobacco: Never Assessed Comments Unknown Sex and Gender Information Value Date Recorded Sex Assigned at Not on file Legal Sex Female 12:58 AM GOLF PROFESSIONAL Gender Identity Not on file Sexual Orientation Not on file Last Filed Vital Signs Vital Sign Reading Time Taken Comments Blood Pressure 118/66 01/22/2024 5:31 PM CDT Pulse 84 01/22/2024 5:31 PM CDT Temperature 36.4 C (97.6 F) 01/22/2024 5:31 PM CDT Respiratory Rate 20 01/22/2024 5:31 PM CDT Oxygen Saturation 96% 01/22/2024 5:31 PM CDT Inhaled Oxygen Concentration - - Weight 77.6 kg (171 lb) 01/22/2024 5:31 PM CDT Height - - Body Mass Index - - Plan of Treatment Not on file Insurance MEDICARE Care Teams Care Transition Mgr Relationship Specialty Start Date End Date Jad Elizabeth MD [address] [place] [address] PCP - General 05/30/11
--- OUTSIDE RECORDS SUMMARY | 2024-06-09 16:40 | XMS_ITS | Referral Summary ---
Author Organization [facility] Address [address] [facility] [place] [address] Care Team Providers Care Manager E Commerce Name Role Phone Jad Elizabeth MD Primary Care Provider + [phone] Source Comments [facility],non-owned Affiliates and Associated Physician Practices is amultiple site organization consisting of ambulatory clinics and hospital sitesin [place], [place], [place] and [place]. This disclosure is being madepursuant to the Care Everywhere program and may not contain all information available regarding this patient. Last updated 17.[facility] Encounters Date Type Department Care Team Description 06/06/2024 1:03 PM CDT - 06/06/2024 11:59 PM CDT Hospital Encounter [facility] DIAGNOSTIC RAD [address] [address] [facility] 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 (FLUAD TRIVALENT; 65Y+) (AIIV3) 01/02/2019 Pneumococcal Pcv13 Conj 01/02/2019 Social History Tobacco Use Types Packs/Day Years [...] 08/09/2023 11:11 AM CDT Plan of Treatment Not on file Procedures Procedure Name Priority Date/Time Associated Diagnosis [...] RDERABLES from Last 3 Months Care Teams Manager E Commerce Relationship Specialty Start Date End Date Jad Elizabeth MD [address] [facility] [address] [place] [address] PCP - General 04/24/14
--- OUTSIDE RECORDS SUMMARY | 2024-06-09 16:40 | XMS_ITS | Clinical Summary ---
Author Organization [facility] [address] Address [address] [place] [phone] Care Team Providers Care Rush Seater Name Role Phone Jad Elizabeth MD Primary [...] on file Legal Sex Female 12:58 AM COMMUNITY ASSISTANT Gender Identity Not on file Sexual Orientation Not on file Obstetrics History Last Filed Vital Signs Vital Sign Reading [...] Mass Index - - Plan of Treatment Health Maintenance Due Date Last Done Comments Depression Screening 1940 Fall Risk Assessment 1940 Osteoporosis Screening-Bone Density Scan 1940 DTaP/Tdap/Td Vaccine (1 - Tdap) 10/21/1950 Hepatitis B Screening 10/21/1957 Zoster Vaccine (1 of 2) 10/21/1989 Well Visit 65+ 10/21/2004 Pneumococcal vaccine 65+ (2 of 2 - PPSV23) 01/03/2020 01/02/2019 Influenza Vaccine (#1) 2023 , 12/28/2021, 12/27/2021, Additional history exists Covid-19 Vaccine (2023-2 5 season) 2024 12/12/2023, 01/15/2023, 01/11/2022, Additional history exists Insurance MEDICARE [employer] Care Teams Rush Seater Relationship Specialty Start Date End Date Jad Elizabeth MD [address] [place] [address] PCP - General 05/30/11
--- OUTSIDE RECORDS SUMMARY | 2024-06-09 16:40 | XMS_ITS | Continuity of Care Document ---
Author Organization [facility] Address [address] [place] [address] [address] [place] [address] Phone Care Team Providers Care Agricultural Engineering Technicians Name Role Phone Stephanie Franco Unavailable Unavailable Procedures Procedure Date Eye Exam Established Pt Eye Exam & Treatment Refraction Eye Exam & Treatment Office Consultation Advance Directives Directive Yes / No Effective Date File Name No Information Encounters Encounter Description Practice Location Reason(s) For Visit Diagnoses Date Provider Providers Copied on Encounter [facility], [address] [place] [address] [address], [place], [place], [id number], [place] tel:[phone] [facility] No Information 0 Joan Brown. [facility], [facility] [address], [place], [place], [facility] [place], [place]. tel:[phone] Referring Provider: Jad Carrizales, [address] [place], [place] [address], [place], [address]. tel:[phone] [facility], [address] [place] [address] [address], [place], [place], [id number], tel:[phone] [facility] No Information 0 Yohan Montgomery. [facility] [address], [place], [address], [place]. tel:[phone] Referring Provider: Jad Carrizales, [facility] [facility], [place], [address]. tel:[phone] [facility], [address] [facility] [address], [place], [place], [id number], [place] tel:[phone] [facility] No Information 7-200 8 Yohan Montgomery. [address] [facility] [address], [place], [place], [facility] [place], [place]. tel:[phone] Referring Provider: Jad Carrizalse, [address] [place] [address] [address], [place], [address]. tel:[phone] Office Consultation [facility], [address] [facility] [address], [place], [place], [id number], [place] tel:[phone] [facility] No Information 2-200 7 Doris Randle. [address] [facility], [address], [place], [place], [id number], [place]. tel:[phone] Referring Provider: Jad Carrizales, [address] [place], [place] [address], [address]. tel:[phone] Family History Family Member Type Diagnosis Age At Onset No Information Payers Payer name Insurance type Covered libertarian ID Authoriza tion(s) No Information Social History Type Description Quantity Date Captured Comments Sex Female Smoking Status No Information Chief Complaint And Reason For Visit No Information Reason For Referral Reason For Referral No Information History Of Present Illness Encounter Date Complaint History Of Prese nt Illness No Information Functional Status Date Functional Assessmen t No Information Instructions Date Instruction Additional Infor mation No Information Assessments Type Assessment Date No Information Patient Care Teams Name Effective Dates (start - stop) Status Members No Information
== END 2024-06-09 14:05 | disposition home or self-care (01) ==
LOC: ANHIMG 14:07
PROVIDERS: PCP Emergency Medicine; Visit Provider Obstetrics & Gynecology Gynecology
DX: Z12.31 Encounter for screening mammogram for malignant neoplasm of breast (principal)
CPT/HCPCS: 77063; 77067